=== PATIENT | female | born 1985 | race American Indian/Alaskan Native ===

== ENCOUNTER 2016-10-18 10:25 | Emergency (ER) | payer MEDICAID, OTHER ==
[2016-10-18 10:44] VITALS: BP 151/92
[2016-10-18] MEDS ORDERED: Ketorolac 60 MG/2 ML SDV IM ONE (10:55)
--- NOTE | 2016-10-18 11:37 | EDM.PDOC ---
ED HPI Trauma - General Chief Complaint: Upper Extremity Injury/Pain Stated Complaint: HURT LT ARM Time Seen by Provider: 10/18/16 10:44 Source: Reports: Patient History Limitations: Reports: No limitations - History of Present Illness INITIAL COMMENTS - FREE TEXT/NARRATIVE: History of present illness: [31-year-old female who fell on the ice yesterday onto her left elbow comes in complaining of left elbow pain and proximal left forearm pain. no other injuries. She comes into the ER ambulatory self splinting the elbow] Review of systems: As per history of present illness and below otherwise all systems reviewed and negative. Past medical history: As per history of present illness and as reviewed below otherwise noncontributory. Surgical history: As per history of present illness and as reviewed below otherwise noncontributory. Social history: No reported history of drug or alcohol abuse. Family history: As per history of present illness and as reviewed below otherwise noncontributory. Physical exam: HEENT: Atraumatic, normocephalic, pupils reactive, negative for conjunctival pallor or scleral icterus, mucous membranes moist, throat clear, neck supple, nontender, trachea midline. Lungs: Clear to auscultation Heart: S1S2, regular Extremities: She has no swelling of the left ear or deformity on palpation she has diffuse pain about the elbow and proximal forearm there does not seem to be any area of point tenderness Neuro: Awake, alert, oriented. Motor and sensory unremarkable throughout. Exam nonfocal. Diagnostics: [X-rays of the elbow and forearm do not show any fractures that I am appreciating] Therapeutics: [] Impression: [Contusion left elbow] Plan: [She is provided with morphine immediate release 15 mg 1 by mouth every 4 hours when necessary #10 no refills. She is also provided with a sling and is to follow up with primary care doctor if not improving] Definitive disposition and diagnosis as appropriate pending reevaluation and review of above. Allergies/ADRs: Allergies doxycycline Allergy (Verified 03/27/16 09:41) Itching ibuprofen Allergy (Verified 03/27/16 09:41) Hives Penicillins Allergy (Verified 03/27/16 09:41) Hives codeine phosphate [From Tylenol-Codeine #3] Adverse Reaction (Verified 03/27/16 09:41) Nausea and Vomiting erythromycin base Adverse Reaction (Verified 03/27/16 09:41) Dizziness Past Medical History HEENT History: Reports: Impaired vision, Other (see below) Other HEENT History: Dental abscess Cardiovascular History: Reports: Heart murmur Respiratory History: Reports: Asthma, Pneumothorax Gastrointestinal History: Reports: Cholelithiasis, GERD 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: Musculoskeletal History: Reports: Back pain, chronic Psychiatric History: Reports: Panic attack - Infectious Disease History Infectious Disease History: Reports: Chicken pox - Past Surgical History HEENT Surgical History: Reports: Tonsillectomy GI Surgical History: Reports: Cholecystectomy, Colonoscopy Female Surgical History: Reports: section Social & Family History - Family History Cardiac: Reports: [place] - Tobacco Use Smoking Status *Q: Current Every Day Smoker Years of Tobacco use: 10 Packs/Tins Daily: 1 Used Tobacco, but Quit: Yes Month Tobacco Last Used: January Second Hand Smoke Exposure: Yes - Alcohol Use Days Per Week of Alcohol Use: 0 - Recreational Drug Use Recreational Drug Use: No Review of Systems - Review of Systems Review Of Systems: ROS reveals no pertinent complaints other than HPI. Trauma Exam - Physical Exam Exam: See Below Course - Vital Signs Last Recorded V/S: Last Vital Signs Temp 36.1 C 10/18/16 10:49 Pulse 59 L 10/18/16 10:49 Resp 16 10/18/16 10:49 BP 151/92 H 10/18/16 10:49 Pulse Ox 96 10/18/16 10:49 - Orders/Labs/Meds Orders: Active Orders 24 hr Category Date Time Status Elbow Min 3V Lt [CR] Stat Exams 10/18/16 10:46 Ordered Forearm 2V Lt [CR] Stat Exams 10/18/16 10:46 Taken Meds: Medications Discontinued Medications Generic Name Dose Route Start Last Admin Trade Name Jesus Albertoq PRN Reason Stop Dose Admin Ketorolac Tromethamine 30 mg 10/18/16 10:55 10/18/16 11:03 Toradol IM 10/18/16 10:56 30 mg ONETIME ONE Administration Departure - Departure Time of Disposition: 11:35 Disposition: Home, Self-Care 01 Condition: good Clinical Impression: Contusion of left elbow, initial encounter Qualifiers: Encounter type: initial encounter Qualified Code(s): S50.02XA - Contusion of left elbow, initial encounter Forms: ED Department Discharge Additional Instructions: You can continue to use ibuprofen or Advil or Aleve for your pain you can use Tylenol in addition to that. You can ice your elbow and forearm and use the sling for comfort but if after a week or 2 he is having a lot of pain and discomfort you should follow up with your primary care doctor - My Orders Last 24 Hours: My Active Orders 10/18/16 10:46 Elbow Min 3V Lt [CR] Stat Forearm 2V Lt [CR] Stat - Assessment/Plan Last 24 Hours: My Active Orders 10/18/16 10:46 Elbow Min 3V Lt [CR] Stat Forearm 2V Lt [CR] Stat
--- NOTE | 2016-10-20 08:57 | CR ---
Forearm 2V Lt, Elbow Min 3V Lt INDICATION: fall, pain FINDINGS: No acute fracture. Mild ulna minus variant. Slight hypertrophic change left elbow.
--- NOTE | 2016-10-20 08:57 | CR ---
Forearm 2V Lt, Elbow Min 3V Lt INDICATION: fall, pain FINDINGS: No acute fracture. Mild ulna minus variant. Slight hypertrophic change left elbow.
== END 2016-10-18 11:52 | disposition home or self-care (01) ==
LOC: JP.ED 10:25
DX: S50.02XA Contusion of left elbow, initial encounter (principal); F17.210 Nicotine dependence, cigarettes, uncomplicated; Z90.49 Acquired absence of other specified parts of digestive tract; Z98.890 Other specified postprocedural states; Z88.0 Allergy status to penicillin; Z88.1 Allergy status to other antibiotic agents; Z88.5 Allergy status to narcotic agent; W00.0XXA Fall on same level due to ice and snow, initial encounter
CPT/HCPCS: 73080; 73090; 96372; 99284; J1885; 99283

== ENCOUNTER 2017-03-08 19:48 | Emergency (ER) | payer MEDICAID, OTHER ==
[2017-03-08] MEDS ORDERED: Albuterol/Ipratropium 3.0-0.5 MG/3 ML Neb Soln NEB ONE (20:39)
--- NOTE | 2017-03-08 20:39 | EDM.PDOC ---
ED HPI GENERAL MEDICAL PROBLEM - General Chief Complaint: Respiratory Problem Stated Complaint: TROUBLE BREATHING Time Seen by Provider: 03/08/17 20:08 Source of Information: Reports: Patient History Limitations: Reports: No Limitations - History of Present Illness INITIAL COMMENTS - FREE TEXT/NARRATIVE: 32 yo female presents with 4 day hx of cough and nasal congestion. headache and SOB. She is a smoker and asthmatic. cough is productive. headache when coughing. Has felt feverish but has not measured temp. decrease in activity and appetite. Asthma controlled prior to illness - Related Data Allergies Allergy/AdvReac Type Severity Reaction Status Date / Time doxycycline Allergy Itching Verified 03/08/17 20:14 ibuprofen Allergy Hives Verified 03/08/17 20:14 Penicillins Allergy Hives Verified 03/08/17 20:14 codeine phosphate AdvReac Nausea and Verified 03/08/17 20:14 [From Tylenol-Codeine #3] Vomiting erythromycin base AdvReac Dizziness Verified 03/08/17 20:14 Home Meds: Home Meds NK [No Known Home Meds] 03/08/17 [History] Past Medical History HEENT History: Reports: Impaired Vision, Other (See Below) Other HEENT History: Dental abscess Cardiovascular History: Reports: Heart Murmur Respiratory History: Reports: Asthma, Pneumothorax Gastrointestinal History: Reports: Cholelithiasis, GERD 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: Musculoskeletal History: Reports: Back Pain, Chronic Psychiatric History: Reports: Panic Attack - Infectious Disease History Infectious Disease History: Reports: Chicken Pox - Past Surgical History GI Surgical History: Reports: Cholecystectomy, Colonoscopy Female Surgical History: Reports: Section Social & Family History - Family History Cardiac: Reports: [place] - Tobacco Use Smoking Status *Q: Current Every Day Smoker Years of Tobacco use: 15 Packs/Tins Daily: 1 Used Tobacco, but Quit: Yes Month Tobacco Last Used: January Second Hand Smoke Exposure: Yes - Alcohol Use Days Per Week of Alcohol Use: 0 - Recreational Drug Use Recreational Drug Use: No ED ROS GENERAL - Review of Systems Review Of Systems: See Below Constitutional: Reports: Fever, Chills, Fatigue HEENT: Reports: Sinus Problem, Throat Pain Respiratory: Reports: Shortness of Breath, Cough, Sputum. Denies: Wheezing Cardiovascular: Denies: Chest Pain, Palpitations GI/Abdominal: Denies: Abdominal Pain Skin: Denies: Rash ED EXAM, GENERAL - Physical Exam Exam: See Below Exam Limited By: No Limitations General Appearance: Alert, WD/WN, No Apparent Distress Ears: Normal External Exam Ear Exam: Right Ear: TM normal, Left Ear: TM Red Nose: No Blood, Nasal Drainage Throat/Mouth: Inflammation Head: Atraumatic, Normocephalic Neck: Normal Inspection, Supple, Non-Tender, Full Range of Motion, Lymphadenopathy (R), Lymphadenopathy (L) Respiratory/Chest: No Accessory Muscle Use, Decreased Breath Sounds Cardiovascular: Regular Rate, Rhythm, No Murmur GI/Abdominal: Soft, Non-Tender Back Exam: Normal Inspection, Full Range of Motion. No: CVA Tenderness (R), CVA Tenderness (L) Neurological: Alert, Oriented Psychiatric: Normal Affect, Normal Mood Skin Exam: Warm, Dry, Intact, No Rash Course - Vital Signs Last Recorded V/S: Last Vital Signs Temp 37.1 C 03/08/17 20:19 Pulse 70 03/08/17 20:19 Resp 22 H 03/08/17 20:19 BP 147/79 H 03/08/17 20:19 Pulse Ox 95 03/08/17 20:19 - Orders/Labs/Meds Orders: Active Orders 24 hr Category Date Time Status RT Aerosol Therapy [RC] ASDIRECTED Care 03/08/17 20:39 Active Chest 2V [CR] Stat Exams 03/08/17 20:37 Taken Sodium Chloride 0.9% [Normal Saline] 1,000 ml Med 03/08/17 20:45 Active IV ASDIRECTED Medication Orders Sodium Chloride (Normal Saline) 1,000 mls @ 999 mls/hr IV ASDIRECTED PAOLO Last Admin: 03/08/17 20:48 Dose: 999 mls/hr Labs: Laboratory Tests 03/08/17 03/08/17 Range/Units 21:06 21:06 WBC 9.7 (4.5-11.0) K/uL RBC 4.70 (3.30-5.50) M/uL Hgb 15.0 (12.0-15.0) g/dL Hct 41.4 (36.0-48.0) % MCV 88 (80-98) fL MCH 32 H (27-31) pg MCHC 36 (32-36) % Plt Count 282 (150-400) K/uL Neut % (Auto) 69 H (36-66) % Lymph % (Auto) 22 L (24-44) % [place] % (Auto) 7 H (2-6) % Eos % (Auto) 1 L (2-4) % Baso % (Auto) 1 (0-1) % Sodium 143 (140-148) mmol/L Potassium 3.4 L (3.6-5.2) mmol/L Chloride 106 (100-108) mmol/L Carbon Dioxide 30 (21-32) mmol/L Anion Gap 10.4 (5.0-14.0) mmol/L BUN 10 (7-18) mg/dL Creatinine 1.1 H (0.6-1.0) mg/dL Est Cr Clr Drug Dosing 71.40 mL/min Estimated GFR (MDRD) 58 L (>60) Glucose 106 (74-106) mg/dL Calcium 9.3 (8.5-10.1) mg/dL Meds: Medications Generic Name Dose Route Start Last Admin Trade Name Freq PRN Reason Stop Dose Admin Sodium Chloride 1,000 mls @ 999 mls/hr 03/08/17 20:45 03/08/17 20:48 Normal Saline IV 999 mls/hr ASDIRECTED PAOLO Administration Discontinued Medications Generic Name Dose Route Start Last Admin Trade Name Freq PRN Reason Stop Dose Admin Albuterol/Ipratropium 3 ml 03/08/17 20:39 03/08/17 20:47 Duoneb 3.0-0.5 Mg/3 Ml NEB 03/08/17 20:40 3 ml ONETIME ONE Administration - Re-Assessments/Exams Free Text/Narrative Re-Assessment/Exam: 03/08/17 21:42 breathing improved post neb treatment. will treat with Azithromycin 500 mg daily for 5 days and albuterol nebs as needed Departure - Departure Time of Disposition: 21:44 Disposition: Home, Self-Care 01 Condition: Good Clinical Impression: Sinusitis Qualifiers: Sinusitis location: unspecified location Chronicity: acute Recurrence: non- recurrent Qualified Code(s): J01.90 - Acute sinusitis, unspecified Acute bronchiolitis Qualifiers: Bronchiolitis organism: unspecified organism Qualified Code(s): J21.9 - Acute bronchiolitis, unspecified Asthma Qualifiers: Asthma severity: mild intermittent Asthma complication type: with acute exacerbation Qualified Code(s): J45.21 - Mild intermittent asthma with (acute) exacerbation - Discharge Information Forms: ED Department Discharge Additional Instructions: azithromycin 500 mg daily for 5 days albuterol as needed for cough increase fluid intake with goal of 1.5-2 liters per day with an addition of sports drink for electrolyte imbalance - My Orders Last 24 Hours: My Active Orders 03/08/17 20:37 Chest 2V [CR] Stat 03/08/17 20:39 RT Aerosol Therapy [RC] ASDIRECTED 03/08/17 20:45 Sodium Chloride 0.9% [Normal Saline] 1,000 ml IV ASDIRECTED - Assessment/Plan Last 24 Hours: My Active Orders 03/08/17 20:37 Chest 2V [CR] Stat 03/08/17 20:39 RT Aerosol Therapy [RC] ASDIRECTED 03/08/17 20:45 Sodium Chloride 0.9% [Normal Saline] 1,000 ml IV ASDIRECTED
[2017-03-08] MEDS ORDERED: Sodium Chloride 0.9% 1,000 ML IV SCH (20:45)
[2017-03-08 21:41] VITALS: BP 121/70
--- NOTE | 2017-03-09 10:13 | CR ---
Chest 2V HISTORY: cough COMPARISON: 01/11/2016 FINDINGS: Lungs appear clear and normally aerated. Cardiomediastinal silhouette is within normal limits. No va scular redistribution or pleural fluid can be seen. Bony structures and soft tissues are unremarkabl e. IMPRESSION: No acute chest abnormality identified.
== END 2017-03-08 22:13 | disposition home or self-care (01) ==
LOC: JP.ED 19:48
DX: J01.90 Acute sinusitis, unspecified (principal); J21.9 Acute bronchiolitis, unspecified; J45.21 Mild intermittent asthma with (acute) exacerbation; K21.9 Gastro-esophageal reflux disease without esophagitis; F17.210 Nicotine dependence, cigarettes, uncomplicated; Z90.49 Acquired absence of other specified parts of digestive tract; Z98.890 Other specified postprocedural states; Z88.0 Allergy status to penicillin; Z88.1 Allergy status to other antibiotic agents; Z88.5 Allergy status to narcotic agent; Z88.6 Allergy status to analgesic agent
CPT/HCPCS: 36415; 71020; 80048; 85025; 96360; 99284; J7040; J7620

== ENCOUNTER 2018-01-10 12:09 | Emergency (ER) | payer MEDICAID ==
[2018-01-10 12:28] VITALS: BP 118/73
--- NOTE | 2018-01-10 13:31 | EDM.PDOC ---
ED HPI GENERAL MEDICAL PROBLEM - General Chief Complaint: Bite:Animal, Insect Stated Complaint: BIT BY SOMETHING ON UPPER RIGHT LEG Time Seen by Provider: 01/10/18 13:27 Source of Information: Reports: Patient, Family, RN Notes Reviewed History Limitations: Reports: No Limitations - History of Present Illness INITIAL COMMENTS - FREE TEXT/NARRATIVE: 33-year-old female presents with complaint of rash on her right leg she is unsure of how long it's been there is painful for one of her hobbies is leaching Right Upper Leg Pain Score (Numeric/FACES): 8 - Related Data Allergies Allergy/AdvReac Type Severity Reaction Status Date / Time doxycycline Allergy Itching Verified 01/10/18 12:27 ibuprofen Allergy Hives Verified 01/10/18 12:27 Penicillins Allergy Hives Verified 01/10/18 12:27 Sulfa (Sulfonamide Allergy Hives Verified 01/10/18 12:27 Antibiotics) codeine phosphate AdvReac Nausea and Verified 01/10/18 12:27 [From Tylenol-Codeine #3] Vomiting erythromycin base AdvReac Dizziness Verified 01/10/18 12:27 Home Meds: Home Meds NK [No Known Home Meds] 03/08/17 [History] Past Medical History HEENT History: Reports: Impaired Vision, Other (See Below) Other HEENT History: Dental abscess Cardiovascular History: Reports: Heart Murmur Respiratory History: Reports: Asthma, Pneumothorax Gastrointestinal History: Reports: Cholelithiasis, GERD 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: Musculoskeletal History: Reports: Back Pain, Chronic Psychiatric History: Reports: Panic Attack - Infectious Disease History Infectious Disease History: Reports: Chicken Pox - Past Surgical History GI Surgical History: Reports: Cholecystectomy, Colonoscopy Female Surgical History: Reports: Section Social & Family History - Family History Cardiac: Reports: [place] - Tobacco Use Smoking Status *Q: Current Every Day Smoker Years of Tobacco use: 10 Packs/Tins Daily: 0.5 - Caffeine Use Caffeine Use: Reports: Soda - Recreational Drug Use Recreational Drug Use: No ED ROS GENERAL - Review of Systems Review Of Systems: See Below Constitutional: Reports: No Symptoms Respiratory: Reports: No Symptoms Cardiovascular: Reports: No Symptoms Skin: Reports: Rash ED EXAM, ANIMAL BITE - Physical Exam Exam: See Below Text/Narrative:: Examination of the integument area on the right thigh there is a raised area with a small ulceration in the center about the size of a $0.25 piece there is central clearing around that area about 1 cm in thickness followed by another red area 2 cm in thickness around that consistent with erythema migrans Exam Limited By: No Limitations General Appearance: Alert, WD/WN, No Apparent Distress Course - Vital Signs Last Recorded V/S: Last Vital Signs Temp 97.5 F 01/10/18 12:23 Pulse 55 L 01/10/18 12:23 Resp 16 01/10/18 12:23 BP 118/73 01/10/18 12:23 Pulse Ox 98 01/10/18 12:23 - Orders/Labs/Meds Meds: Medications Discontinued Medications Generic Name Dose Route Start Last Admin Trade Name Freq PRN Reason Stop Dose Admin Cefuroxime Axetil 500 mg 01/10/18 13:25 Ceftin PO 01/10/18 13:26 ONETIME ONE Departure - Departure Time of Disposition: 13:30 Disposition: Home, Self-Care 01 Condition: Good Clinical Impression: Erythema migrans (Lyme disease) - Discharge Information Referrals: PCP,None [Primary Care Provider] - Additional Instructions: Take full course of antibiotics, Please followup with your primary care provider in 3-5 days if not better, please call return to the emergency department with worsening of symptoms. - Assessment/Plan Plan: Assessment Acuity = acute Site and laterality = early Lyme disease Etiology = secondary to deer tick bite Manifestations = none Location of injury = Home Lab values = none Plan Because of her allergies elected treat with Ceftin 500 mg by mouth twice a day 20 days initial dose was started in the emergency department follow-up primary care in 5-7 days if no improvement This note was dictated using [employer] voice recognition software please call with any questions on syntax or grammar.
== END 2018-01-10 13:41 | disposition home or self-care (01) ==
LOC: JP.ED 12:09
DX: A69.20 Lyme disease, unspecified (principal); S70.361A Insect bite (nonvenomous), right thigh, initial encounter; F17.210 Nicotine dependence, cigarettes, uncomplicated; Z88.1 Allergy status to other antibiotic agents; Z88.0 Allergy status to penicillin; Z88.2 Allergy status to sulfonamides; Z88.8 Allergy status to other drugs, medicaments and biological substances; W57.XXXA Bitten or stung by nonvenomous insect and other nonvenomous arthropods, initial encounter
CPT/HCPCS: 99282; 99283; A9270

== ENCOUNTER 2018-02-14 19:58 | Emergency (ER) | payer MEDICAID ==
[2018-02-14 20:17] VITALS: BP 144/85
--- NOTE | 2018-02-14 20:52 | EDM.PDOC ---
ED HPI GENERAL MEDICAL PROBLEM - General Chief Complaint: Bite:Animal, Insect Stated Complaint: REDNESS R LEG Time Seen by Provider: 02/14/18 20:20 Source of Information: Reports: Patient History Limitations: Reports: No Limitations - History of Present Illness INITIAL COMMENTS - FREE TEXT/NARRATIVE: 33 yo female initially seen in ER 1 month ago dx tick bite and started on 20 days of keflex she was seen in [facility] ER 11 days ago tx with Bactrim DS. Continues to have itching and warm. mild pain. generally feels well right upper thigh Pain Score (Numeric/FACES): 8 - Related Data Allergies Allergy/AdvReac Type Severity Reaction Status Date / Time doxycycline Allergy Itching Verified 02/14/18 20:18 ibuprofen Allergy Hives Verified 02/14/18 20:18 Penicillins Allergy Hives Verified 02/14/18 20:18 Sulfa (Sulfonamide Allergy Hives Verified 02/14/18 20:18 Antibiotics) codeine phosphate AdvReac Nausea and Verified 02/14/18 20:18 [From Tylenol-Codeine #3] Vomiting erythromycin base AdvReac Dizziness Verified 02/14/18 20:18 Home Meds: Home Meds Sulfamethoxazole/Trimethoprim [Septra DS] 1 tab PO DAILY 02/14/18 [History] Past Medical History HEENT History: Reports: Impaired Vision, Other (See Below) Other HEENT History: Dental abscess Cardiovascular History: Reports: Heart Murmur Respiratory History: Reports: Asthma, Pneumothorax Gastrointestinal History: Reports: Cholelithiasis, GERD 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: Musculoskeletal History: Reports: Back Pain, Chronic Psychiatric History: Reports: Panic Attack - Infectious Disease History Infectious Disease History: Reports: Chicken Pox - Past Surgical History GI Surgical History: Reports: Cholecystectomy, Colonoscopy Female Surgical History: Reports: Section Social & Family History - Family History Cardiac: Reports: [place] - Tobacco Use Smoking Status *Q: Current Every Day Smoker Years of Tobacco use: 15 Packs/Tins Daily: 0.5 - Caffeine Use Caffeine Use: Reports: Soda ED ROS GENERAL - Review of Systems Review Of Systems: See Below Constitutional: Denies: Fever, Chills, Fatigue Respiratory: Denies: Shortness of Breath, Wheezing Cardiovascular: Denies: Chest Pain Skin: Reports: Rash, Erythema ED EXAM, ANIMAL BITE - Physical Exam Exam: See Below Exam Limited By: No Limitations General Appearance: Alert, WD/WN, No Apparent Distress Respiratory/Chest: No Respiratory Distress, Lungs Clear, Normal Breath Sounds. No: Crackles, Rhonchi, Wheezing Cardiovascular: Regular Rate, Rhythm, No Edema, No Murmur Skin Exam: Rash (15 cm soft mild warmth to touch rash right posterior thigh) Course - Vital Signs Last Recorded V/S: Last Vital Signs Temp 36.8 C 02/14/18 20:23 Pulse 79 02/14/18 20:23 Resp 16 02/14/18 20:23 BP 144/85 H 02/14/18 20:23 Pulse Ox 98 02/14/18 20:23 Departure - Departure Time of Disposition: 20:53 Disposition: Home, Self-Care 01 Condition: Good Clinical Impression: Erythema migrans (Lyme disease) - Discharge Information Instructions: Tick Bite Information, Adult, [id number] Referrals: Satinder Shah MD [Primary Care Provider] - Forms: ED Department Discharge Additional Instructions: prednisone taper dose steroid cream twice daily
== END 2018-02-14 21:22 | disposition home or self-care (01) ==
LOC: JP.ED 19:58
DX: A69.20 Lyme disease, unspecified (principal); F17.210 Nicotine dependence, cigarettes, uncomplicated; Z88.1 Allergy status to other antibiotic agents; Z88.0 Allergy status to penicillin; Z88.2 Allergy status to sulfonamides; Z88.5 Allergy status to narcotic agent; Z88.6 Allergy status to analgesic agent
CPT/HCPCS: 99283

== ENCOUNTER 2018-08-24 11:22 | Emergency (ER) | payer MEDICAID ==
[2018-08-24 11:58] VITALS: BP 128/71
--- NOTE | 2018-08-24 12:06 | EDM.PDOC ---
ED HPI GENERAL MEDICAL PROBLEM - General Chief Complaint: Respiratory Problem Stated Complaint: CHEST CONGESTION/PAIN Time Seen by Provider: 08/24/18 11:50 Source of Information: Reports: Patient, Family History Limitations: Reports: No Limitations - History of Present Illness INITIAL COMMENTS - FREE TEXT/NARRATIVE: 33-year-old female with asthma, has had a cough for the past 3 or 4 days and over the past 12 hours it has become productive of thick and yellow sputum. Low- grade fevers, no abdominal pain, nausea or vomiting. She does not have any asthma medication or inhalers at this time. Denies a sore throat or ear pain. Onset: Gradual Duration: Day(s): (3-4 days) Associated Symptoms: Reports: Cough, Malaise, Shortness of Breath. Denies: Nausea/Vomiting - Related Data Allergies Allergy/AdvReac Type Severity Reaction Status Date / Time doxycycline Allergy Itching Verified 08/24/18 11:34 ibuprofen Allergy Hives Verified 08/24/18 11:34 Penicillins Allergy Hives Verified 08/24/18 11:34 Sulfa (Sulfonamide Allergy Hives Verified 08/24/18 11:34 Antibiotics) codeine phosphate AdvReac Nausea and Verified 08/24/18 11:34 [From Tylenol-Codeine #3] Vomiting erythromycin base AdvReac Dizziness Verified 08/24/18 11:34 Home Meds: Home Meds NK [No Known Home Meds] 02/28/18 [History] Past Medical History HEENT History: Reports: Impaired Vision, Other (See Below) Other HEENT History: Dental abscess Cardiovascular History: Reports: Heart Murmur Respiratory History: Reports: Asthma, Pneumothorax Gastrointestinal History: Reports: Cholelithiasis, GERD 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: Musculoskeletal History: Reports: Back Pain, Chronic Neurological History: Reports: Migraines Psychiatric History: Reports: Panic Attack Endocrine/Metabolic History: Reports: Obesity/BMI 30+ - Infectious Disease History Infectious Disease History: Reports: Chicken Pox - Past Surgical History Head Surgeries/Procedures: Reports: None HEENT Surgical History: Reports: Adenoidectomy, Tonsillectomy Cardiovascular Surgical History: Reports: None Respiratory Surgical History: Reports: None GI Surgical History: Reports: Cholecystectomy, Colonoscopy, EGD Female Surgical History: Reports: Section Endocrine Surgical History: Reports: None Neurological Surgical History: Reports: None Musculoskeletal Surgical History: Reports: None Dermatological Surgical History: Reports: None Social & Family History - Family History Cardiac: Reports: [place] - Tobacco Use Smoking Status *Q: Current Every Day Smoker Years of Tobacco use: 15 Packs/Tins Daily: 0.5 Used Tobacco, but Quit: No - Caffeine Use Caffeine Use: Reports: Soda - Recreational Drug Use Recreational Drug Use: No ED ROS GENERAL - Review of Systems Review Of Systems: See Below Constitutional: Reports: Chills, Malaise HEENT: Denies: Ear Pain, Throat Pain Respiratory: Reports: Shortness of Breath, Cough, Sputum Cardiovascular: Denies: Chest Pain GI/Abdominal: Denies: Abdominal Pain, Nausea, Vomiting Skin: Reports: No Symptoms Neurological: Denies: Headache Psychiatric: Reports: No Symptoms ED EXAM, GENERAL - Physical Exam Exam: See Below Exam Limited By: No Limitations General Appearance: Alert, No Apparent Distress Ear Exam: Bilateral Ear: Other (Tympanic scarring is present bilaterally from previous tubes.) Throat/Mouth: Normal Inspection Head: Atraumatic Respiratory/Chest: No Respiratory Distress, Wheezing (Diffuse expiratory wheezing is present along with a few perihilar rhonchi) Course - Vital Signs Last Recorded V/S: Last Vital Signs Temp 96.4 F 08/24/18 11:40 Pulse 57 L 08/24/18 11:40 Resp 16 08/24/18 11:40 BP 128/71 08/24/18 11:40 Pulse Ox 97 08/24/18 11:40 - Re-Assessments/Exams Free Text/Narrative Re-Assessment/Exam: 08/24/18 12:05 Patient will be provided with an albuterol inhaler to take 2 puffs every 3-4 hours for wheezing, and supplied a horse of 5 days of Zithromax. It was explained to the patient that this is likely viral and the Zithromax may be more preventative. If she is worsening despite treatment she should return for recheck. Departure - Departure Time of Disposition: 12:28 Disposition: Home, Self-Care 01 Condition: Good Clinical Impression: Bronchitis Asthma exacerbation Qualifiers: Asthma severity: mild Asthma persistence: intermittent Qualified Code(s): J45.21 - Mild intermittent asthma with (acute) exacerbation - Discharge Information Instructions: Acute Bronchitis, Adult, [id number] Referrals: PCP,None [Primary Care Provider] - Forms: ED Department Discharge Care Plan Goals: Use inhaler 1-2 puffs every 3 hours for wheezing, and take antibiotic as prescribed. Return in 2-3 days if not improving satisfactorily, or consider returning sooner if worsening such as increased shortness of breath or fever.
== END 2018-08-24 12:28 | disposition home or self-care (01) ==
LOC: JP.ED 11:22
DX: J45.21 Mild intermittent asthma with (acute) exacerbation (principal); E66.9 Obesity, unspecified; F17.210 Nicotine dependence, cigarettes, uncomplicated; Z88.8 Allergy status to other drugs, medicaments and biological substances; Z88.5 Allergy status to narcotic agent; Z88.2 Allergy status to sulfonamides; Z88.0 Allergy status to penicillin
CPT/HCPCS: 99283

== ENCOUNTER 2019-02-06 15:42 | Emergency (ER) | payer MEDICAID ==
[2019-02-06 16:31] VITALS: BP 133/81; PULSE 65
[2019-02-06] MEDS ORDERED: Alum Hydrox/Mag Hydrox/Simeth 15 ML, Lidocaine 2% 15 ML PO ONE ×2 (16:47)
--- NOTE | 2019-02-06 16:53 | EDM.PDOC ---
ED HPI GENERAL MEDICAL PROBLEM - General Chief Complaint: Gastrointestinal Problem Stated Complaint: SHARP PAIN IN MED SECTION Time Seen by Provider: 02/06/19 16:35 Source of Information: Reports: Patient History Limitations: Reports: No Limitations - History of Present Illness INITIAL COMMENTS - FREE TEXT/NARRATIVE: states she used to be on PPI; isn't anymore; stomach discomfort has been going on for about 4 months has gall bladder out; no fever, no nausea or vomiting; no diarrhea. Is drinking per usual; per Significant other, she drinks a lot of mountain dew. Onset: Today Location: Reports: Abdomen Quality: Reports: Ache Severity: Moderate Improves with: Reports: None Worsens with: Reports: None Upper Epigastric Pain Score (Numeric/FACES): 8 - Related Data Allergies Allergy/AdvReac Type Severity Reaction Status Date / Time doxycycline Allergy Itching Verified 02/06/19 16:34 ibuprofen Allergy Hives Verified 02/06/19 16:34 Penicillins Allergy Hives Verified 02/06/19 16:34 Sulfa (Sulfonamide Allergy Hives Verified 02/06/19 16:34 Antibiotics) codeine phosphate AdvReac Nausea and Verified 02/06/19 16:34 [From Tylenol-Codeine #3] Vomiting erythromycin base AdvReac Dizziness Verified 02/06/19 16:34 Home Meds: Home Meds NK [No Known Home Meds] 02/28/18 [History] Past Medical History HEENT History: Reports: Impaired Vision, Other (See Below) Other HEENT History: Dental abscess Cardiovascular History: Reports: Heart Murmur Respiratory History: Reports: Asthma, Pneumothorax Gastrointestinal History: Reports: Cholelithiasis, GERD 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: Musculoskeletal History: Reports: Back Pain, Chronic Neurological History: Reports: Migraines Psychiatric History: Reports: Panic Attack Endocrine/Metabolic History: Reports: Obesity/BMI 30+ - Infectious Disease History Infectious Disease History: Reports: Chicken Pox - Past Surgical History HEENT Surgical History: Reports: Adenoidectomy, Tonsillectomy GI Surgical History: Reports: Cholecystectomy, Colonoscopy, EGD Female Surgical History: Reports: Section Social & Family History - Family History Cardiac: Reports: [place] - Tobacco Use Smoking Status *Q: Light Tobacco Smoker Years of Tobacco use: 10 Packs/Tins Daily: 0.5 - Caffeine Use Caffeine Use: Reports: Soda - Recreational Drug Use Recreational Drug Use: No ED ROS GENERAL - Review of Systems Review Of Systems: See Below Constitutional: Reports: No Symptoms Respiratory: Reports: No Symptoms Cardiovascular: Reports: No Symptoms GI/Abdominal: Reports: Abdominal Pain : Reports: No Symptoms Musculoskeletal: Reports: No Symptoms Skin: Reports: No Symptoms Neurological: Reports: No Symptoms ED EXAM, GENERAL - Physical Exam Exam: See Below Exam Limited By: No Limitations General Appearance: Alert, WD/WN Head: Atraumatic, Normocephalic Neck: Normal Inspection, Supple, Full Range of Motion Respiratory/Chest: No Respiratory Distress, Lungs Clear Cardiovascular: Regular Rate, Rhythm GI/Abdominal: Normal Bowel Sounds, Soft, Non-Tender Back Exam: Full Range of Motion Extremities: Normal Inspection, Normal Range of Motion, Non-Tender Neurological: Alert, Oriented, CN II-XII Intact Psychiatric: Normal Affect, Normal Mood Skin Exam: Warm, Dry, Intact, Normal Color, No Rash Course - Vital Signs Last Recorded V/S: Last Vital Signs Temp 95.6 F 02/06/19 16:32 Pulse 65 02/06/19 16:32 Resp 16 02/06/19 16:32 BP 133/81 02/06/19 16:32 Pulse Ox 97 02/06/19 16:32 - Orders/Labs/Meds Orders: Active Orders 24 hr Category Date Time Status HELICOBACTER PYLORI, IGM AB Routine Lab 02/06/19 18:11 Received Meds: Medications Discontinued Medications Generic Name Dose Route Start Last Admin Trade Name Jesus Albertoq PRN Reason Stop Dose Admin Al Hydroxide/Mg Hydroxide 15 0 ml 02/06/19 16:47 02/06/19 16:52 ml/ Lidocaine HCl 15 ml PO 02/06/19 16:48 15 ml ONETIME ONE Administration Famotidine 20 mg 02/06/19 17:45 02/06/19 18:07 Pepcid PO 02/06/19 17:46 20 mg ONETIME ONE Administration - Re-Assessments/Exams Free Text/Narrative Re-Assessment/Exam: 02/06/19 16:51 GI cocktail ordered 02/06/19 18:14 States GI cocktail was helpful Will get Hpylori test, it is a send out Start omeprazole daily Departure - Departure Time of Disposition: 17:50 Disposition: Home, Self-Care 01 Condition: Good Clinical Impression: Stomach pain - Discharge Information *PRESCRIPTION DRUG MONITORING PROGRAM REVIEWED*: Not Applicable *COPY OF PRESCRIPTION DRUG MONITORING REPORT IN PATIENT MANDO: Not Applicable Instructions: Pain Without a Known Cause Referrals: PCP,None [Primary Care Provider] - Forms: ED Department Discharge Additional Instructions: start prilosec again, daily; and if no improvement after 7 days, go to twice per day Follow up with your doctor if not improving; If symptoms are worsening, return for further evaluation. - Problem List & Annotations (1) Stomach pain SNOMED Code(s): 763232194 Code(s): R10.9 - UNSPECIFIED ABDOMINAL PAIN Status: Acute Priority: Low - Problem List Review Problem List Initiated/Reviewed/Updated: Yes - My Orders Last 24 Hours: My Active Orders 02/06/19 18:11 HELICOBACTER PYLORI, IGM AB Routine - Assessment/Plan Last 24 Hours: My Active Orders 02/06/19 18:11 HELICOBACTER PYLORI, IGM AB Routine
[2019-02-06] MEDS ORDERED: Famotidine 20 MG Tab PO ONE (17:45)
== END 2019-02-06 18:08 | disposition home or self-care (01) ==
LOC: JP.ED 15:42
DX: R10.13 Epigastric pain (principal); Z88.0 Allergy status to penicillin; Z88.6 Allergy status to analgesic agent; Z88.2 Allergy status to sulfonamides; Z88.1 Allergy status to other antibiotic agents; Z88.5 Allergy status to narcotic agent; E66.9 Obesity, unspecified; Z90.49 Acquired absence of other specified parts of digestive tract; Z98.890 Other specified postprocedural states; F17.210 Nicotine dependence, cigarettes, uncomplicated
CPT/HCPCS: 86677; 99284; A9270; 99283

== ENCOUNTER 2019-03-27 13:16 | Emergency (ER) | payer MEDICAID ==
[2019-03-27 13:38] VITALS: BP 154/92
--- NOTE | 2019-03-27 14:14 | EDM.PDOC ---
ED HPI GENERAL MEDICAL PROBLEM - General Chief Complaint: Abdominal Pain Stated Complaint: STOMACH PAIN Time Seen by Provider: 03/27/19 13:44 Source of Information: Reports: Patient History Limitations: Reports: No Limitations - History of Present Illness INITIAL COMMENTS - FREE TEXT/NARRATIVE: 34 yo female presents to the ER with 7 day hx of ABD pain generalized upper ABD radiating from mid back. nausea without emesis. no appetite. afebrile Lower Abdomen Pain Score (Numeric/FACES): 9 - Related Data Allergies Allergy/AdvReac Type Severity Reaction Status Date / Time doxycycline Allergy Itching Verified 03/27/19 13:43 ibuprofen Allergy Hives Verified 03/27/19 13:43 Penicillins Allergy Hives Verified 03/27/19 13:43 Sulfa (Sulfonamide Allergy Hives Verified 03/27/19 13:43 Antibiotics) codeine phosphate AdvReac Nausea and Verified 03/27/19 13:43 [From Tylenol-Codeine #3] Vomiting erythromycin base AdvReac Dizziness Verified 03/27/19 13:43 Home Meds: Home Meds NK [No Known Home Meds] 02/28/18 [History] Past Medical History HEENT History: Reports: Impaired Vision, Other (See Below) Other HEENT History: Dental abscess Cardiovascular History: Reports: Heart Murmur Respiratory History: Reports: Asthma, Pneumothorax Gastrointestinal History: Reports: Cholelithiasis, GERD 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 History: Reports: None 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: Musculoskeletal History: Reports: Back Pain, Chronic Neurological History: Reports: Migraines Psychiatric History: Reports: Anxiety, Panic Attack Endocrine/Metabolic History: Reports: Obesity/BMI 30+ - Infectious Disease History Infectious Disease History: Reports: Chicken Pox - Past Surgical History Head Surgeries/Procedures: Reports: None HEENT Surgical History: Reports: Adenoidectomy, Tonsillectomy Cardiovascular Surgical History: Reports: None Respiratory Surgical History: Reports: None GI Surgical History: Reports: Cholecystectomy, Colonoscopy, EGD Female Surgical History: Reports: Section Endocrine Surgical History: Reports: None Neurological Surgical History: Reports: None Musculoskeletal Surgical History: Reports: None Dermatological Surgical History: Reports: None Social & Family History - Family History Cardiac: Reports: [place] - Tobacco Use Smoking Status *Q: Current Every Day Smoker Years of Tobacco use: 10 Packs/Tins Daily: 0.5 Used Tobacco, but Quit: No Second Hand Smoke Exposure: Yes - Caffeine Use Caffeine Use: Reports: Soda - Recreational Drug Use Recreational Drug Use: No ED ROS GENERAL - Review of Systems Review Of Systems: See Below Constitutional: Reports: Malaise. Denies: Fever, Chills, Fatigue Respiratory: Denies: Shortness of Breath, Wheezing Cardiovascular: Denies: Chest Pain GI/Abdominal: Reports: Abdominal Pain : Denies: Dysuria Skin: Denies: Rash ED EXAM, GI/ABD - Physical Exam Exam: See Below Exam Limited By: No Limitations General Appearance: Alert, WD/WN, No Apparent Distress Respiratory/Chest: No Respiratory Distress, Lungs Clear, Normal Breath Sounds, No Accessory Muscle Use, Chest Non-Tender. No: Crackles, Rhonchi, Wheezing Cardiovascular: Regular Rate, Rhythm, No Murmur GI/Abdominal Exam: Normal Bowel Sounds, Soft, No Organomegaly, No Distention, Tender (generalized upper) Neurological: Alert, Oriented Psychiatric: Normal Affect, Normal Mood Skin Exam: Warm, Dry, Intact Course - Vital Signs Last Recorded V/S: Last Vital Signs Temp 36.3 C 03/27/19 13:44 Pulse 56 L 03/27/19 13:44 Resp 18 03/27/19 13:44 BP 154/92 H 03/27/19 13:44 Pulse Ox 99 03/27/19 13:44 - Orders/Labs/Meds Labs: Laboratory Tests 03/27/19 03/27/19 03/27/19 Range/Units 14:17 14:23 14:23 WBC 9.3 (4.5-11.0) K/uL RBC 4.80 (3.30-5.50) M/uL Hgb 15.1 H (12.0-15.0) g/dL Hct 44.7 (36.0-48.0) % MCV 93 (80-98) fL MCH 32 H (27-31) pg MCHC 34 (32-36) % Plt Count 307 (150-400) K/uL Neut % (Auto) 70 H (36-66) % Lymph % (Auto) 20 L (24-44) % [place] % (Auto) 6 (2-6) % Eos % (Auto) 4 (2-4) % Baso % (Auto) 1 (0-1) % Sodium 140 (140-148) mmol/L Potassium 4.0 (3.6-5.2) mmol/L Chloride 106 (100-108) mmol/L Carbon Dioxide 28 (21-32) mmol/L Anion Gap 6.4 (5.0-14.0) mmol/L BUN 6 L (7-18) mg/dL Creatinine 0.9 (0.6-1.0) mg/dL Est Cr Clr Drug Dosing 82.90 mL/min Estimated GFR (MDRD) > 60 (>60) Glucose 117 H (74-106) mg/dL Calcium 9.2 (8.5-10.1) mg/dL Urine Color Yellow (YELLOW) Urine Appearance Cloudy A (CLEAR) Urine pH 6.5 (5.0-8.0) Ur Specific [place] 1.025 (1.008-1.030) Urine Protein Negative (NEGATIVE) mg/dL Urine Glucose (UA) Normal (NEGATIVE) mg/dL Urine Ketones Negative (NEGATIVE) mg/dL Urine Occult Blood Trace-intact H (NEGATIVE) Urine Nitrite Negative (NEGATIVE) Urine Bilirubin Negative (NEGATIVE) Urine Urobilinogen Normal (0.2-1.0) EU/dL Ur Leukocyte Esterase Negative (NEGATIVE) Urine RBC 0-5 (0-5) Urine WBC Not seen (0-5) Ur Epithelial Cells Many Amorphous Sediment Moderate Urine Bacteria Many Urine Mucus Not seen - Re-Assessments/Exams Free Text/Narrative Re-Assessment/Exam: 03/27/19 15:09 WBC normal, hgb mildly elevated but she is a smoker. UA no WBC or RBC with many skin and bacteria I believe tis sample is contaminated and not indicative of UTI. Discussed findings with pt and offered her toradal for pain. Pt became upset that she was not getting her pain cared for and that she was just going to go home. ABD x-ray offer to evaluate for obstruction which she refuses and then left ER 03/27/19 15:52 Departure - Departure Time of Disposition: 15:55 Disposition: Against Medical Advice 07 Clinical Impression: Abdominal pain Qualifiers: Abdominal location: generalized Qualified Code(s): R10.84 - Generalized abdominal pain - Discharge Information *PRESCRIPTION DRUG MONITORING PROGRAM REVIEWED*: Not Applicable *COPY OF PRESCRIPTION DRUG MONITORING REPORT IN PATIENT MANDO: Not Applicable Referrals: PCP,None [Primary Care Provider] - Forms: ED Department Discharge
== END 2019-03-27 15:21 | disposition left against medical advice (07) ==
LOC: JP.ED 13:16
DX: R10.84 Generalized abdominal pain (principal); E66.9 Obesity, unspecified; F17.210 Nicotine dependence, cigarettes, uncomplicated; Z98.890 Other specified postprocedural states; Z90.49 Acquired absence of other specified parts of digestive tract; Z88.0 Allergy status to penicillin; Z88.2 Allergy status to sulfonamides; Z88.5 Allergy status to narcotic agent; Z88.1 Allergy status to other antibiotic agents
CPT/HCPCS: 36415; 80048; 81001; 85025; 99282; 99284

== ENCOUNTER 2019-08-11 15:03 | Emergency (ER) | payer MEDICAID ==
[2019-08-11 15:28] VITALS: BP 158/98; PULSE 57
[2019-08-11] MEDS ORDERED: Ondansetron 4 MG Tab.DIS PO ONE (15:45)
[2019-08-11] MEDS ORDERED: Lactated Ringers 1,000 ML IV ONE (16:20)
--- NOTE | 2019-08-11 16:25 | EDM.PDOC ---
ED HPI GENERAL MEDICAL PROBLEM - General Chief Complaint: Gastrointestinal Problem Stated Complaint: FLU Time Seen by Provider: 08/11/19 16:10 Source of Information: Reports: Patient, Old Records, RN History Limitations: Reports: No Limitations - History of Present Illness INITIAL COMMENTS - FREE TEXT/NARRATIVE: 34 yo female here with a complaint of several days of vomiting, diarrhea, and a occasionally productive cough. Had a fever a couple days ago that resolved. Is dizzy with standing and has decreased urination. Not SOB. 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: Other (see below) (none today) Upper Abdomen Pain Score (Numeric/FACES): 8 - Related Data Allergies Allergy/AdvReac Type Severity Reaction Status Date / Time doxycycline Allergy Itching Verified 08/11/19 15:28 ibuprofen Allergy Hives Verified 08/11/19 15:28 Penicillins Allergy Hives Verified 08/11/19 15:28 Sulfa (Sulfonamide Allergy Hives Verified 08/11/19 15:28 Antibiotics) codeine phosphate AdvReac Nausea and Verified 08/11/19 15:28 [From Tylenol-Codeine #3] Vomiting erythromycin base AdvReac Dizziness Verified 08/11/19 15:28 Home Meds: Home Meds NK [No Known Home Meds] 02/28/18 [History] Past Medical History HEENT History: Reports: Impaired Vision, Other (See Below) Other HEENT History: Dental abscess Cardiovascular History: Reports: Heart Murmur Respiratory History: Reports: Asthma, Pneumothorax Gastrointestinal History: Reports: Cholelithiasis, GERD 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: Musculoskeletal History: Reports: Back Pain, Chronic Neurological History: Reports: Migraines Psychiatric History: Reports: Anxiety, Panic Attack Endocrine/Metabolic History: Reports: Obesity/BMI 30+ - Infectious Disease History Infectious Disease History: Reports: Chicken Pox - Past Surgical History Head Surgeries/Procedures: Reports: None HEENT Surgical History: Reports: Adenoidectomy, Tonsillectomy Cardiovascular Surgical History: Reports: None Respiratory Surgical History: Reports: None GI Surgical History: Reports: Cholecystectomy, Colonoscopy, EGD Female Surgical History: Reports: Section, Salpingo-Oophorectomy Endocrine Surgical History: Reports: None Neurological Surgical History: Reports: None Musculoskeletal Surgical History: Reports: None Dermatological Surgical History: Reports: None Social & Family History - Family History Cardiac: Reports: [place] - Tobacco Use Smoking Status *Q: Current Every Day Smoker Years of Tobacco use: 20 Packs/Tins Daily: 0.5 Used Tobacco, but Quit: No - Caffeine Use Caffeine Use: Reports: Soda - Recreational Drug Use Recreational Drug Use: No ED ROS GENERAL - Review of Systems Review Of Systems: See Below Constitutional: Reports: Malaise HEENT: Reports: No Symptoms Respiratory: Reports: Cough, Sputum. Denies: Shortness of Breath, Wheezing, Hemoptysis Cardiovascular: Reports: Lightheadedness Endocrine: Reports: No Symptoms GI/Abdominal: Reports: Abdominal Pain (some cramps), Diarrhea, Nausea, Vomiting. Denies: Black Stool, Bloody Stool, Constipation, Distension, Flatus, Hematemesis, Hematochezia, Melena : Reports: Other (decreased) Musculoskeletal: Reports: No Symptoms Skin: Reports: No Symptoms Neurological: Reports: No Symptoms ED EXAM, GI/ABD - Physical Exam Exam: See Below Exam Limited By: No Limitations General Appearance: Alert, WD/WN, No Apparent Distress, Obese Eyes: Bilateral: Normal Appearance Ears: Normal External Exam, Normal Canal, Hearing Grossly Normal, Normal TMs Nose: Normal Inspection, No Blood Throat/Mouth: Normal Inspection, Normal Lips, Normal Oropharynx, Normal Voice, No Airway Compromise Head: Atraumatic, Normocephalic Neck: Normal Inspection Respiratory/Chest: No Respiratory Distress, Lungs Clear, Normal Breath Sounds, No Accessory Muscle Use Cardiovascular: Regular Rate, Rhythm, No Edema GI/Abdominal Exam: Normal Bowel Sounds, Soft, Non-Tender, No Distention Back Exam: Normal Inspection. No: CVA Tenderness (R), CVA Tenderness (L) Extremities: Normal Inspection, Normal Range of Motion, Non-Tender, No Pedal Edema Neurological: Alert, Oriented, CN II-XII Intact, Normal Cognition Psychiatric: Normal Affect, Normal Mood Skin Exam: Warm, Dry, Intact, Normal Color, No Rash Course - Vital Signs Last Recorded V/S: Last Vital Signs Temp 36.8 C 08/11/19 15:29 Pulse 57 L 08/11/19 15:29 Resp 14 08/11/19 15:29 BP 158/98 H 08/11/19 15:29 Pulse Ox 97 08/11/19 15:29 Orthostatic Blood Pressure [ 148/103 Standing] Orthostatic Blood Pressure [ 150/90 Sitting] Orthostatic Blood Pressure [ 138/86 Supine] - Orders/Labs/Meds Orders: Active Orders 24 hr Category Date Time Status Orthostatic Vital Signs [RC] ASDIRECTED Care 08/11/19 15:45 Active Atropine/Diphenoxylate [Lomotil 0.025-2.5 MG] Med 08/11/19 17:00 Once 1 tab PO ONETIME ONE Lactated Ringers [Ringers, Lactated] 1,000 ml Med 08/11/19 16:20 Active IV BOLUS Medication Orders Lactated Ringer's (Ringers, Lactated) 1,000 mls @ 1,000 mls/hr IV BOLUS ONE Stop: 08/11/19 17:19 Last Admin: 08/11/19 16:27 Dose: 1,000 mls/hr Labs: Laboratory Tests 08/11/19 08/11/19 Range/Units 15:51 15:51 WBC 10.2 (4.5-11.0) K/uL RBC 4.85 (3.30-5.50) M/uL Hgb 15.0 (12.0-15.0) g/dL Hct 44.5 (36.0-48.0) % MCV 92 (80-98) fL MCH 31 (27-31) pg MCHC 34 (32-36) % Plt Count 314 (150-400) K/uL Sodium 136 L (140-148) mmol/L Potassium 3.8 (3.6-5.2) mmol/L Chloride 103 (100-108) mmol/L Carbon Dioxide 25 (21-32) mmol/L Anion Gap 11.8 (5.0-14.0) mmol/L BUN 10 D (7-18) mg/dL Creatinine 0.8 (0.6-1.0) mg/dL Est Cr Clr Drug Dosing 96.36 mL/min Estimated GFR (MDRD) > 60 (>60) Glucose 100 (74-106) mg/dL Calcium 8.9 (8.5-10.1) mg/dL Meds: Medications Generic Name Dose Route Start Last Admin Trade Name Sudeep PRN Reason Stop Dose Admin Lactated Ringer's 1,000 mls @ 1,000 mls/hr 08/11/19 16:20 08/11/19 16:27 Ringers, Lactated IV 08/11/19 17:19 1,000 mls/hr BOLUS ONE Administration Discontinued Medications Generic Name Dose Route Start Last Admin Trade Name Sudeep PRN Reason Stop Dose Admin Ondansetron HCl 4 mg 08/11/19 15:45 08/11/19 15:53 Zofran Odt PO 08/11/19 15:46 4 mg ONETIME ONE Administration Departure - Departure Time of Disposition: 17:30 Disposition: Home, Self-Care 01 Condition: Fair Clinical Impression: Viral gastroenteritis - Discharge Information *PRESCRIPTION DRUG MONITORING PROGRAM REVIEWED*: No *COPY OF PRESCRIPTION DRUG MONITORING REPORT IN PATIENT MANDO: No Instructions: Viral Gastroenteritis, Adult, [id number] Referrals: PCP,None [Primary Care Provider] - Forms: ED Department Discharge Additional Instructions: Take loperamide per package instructions for diarrhea. Clear liquids only until no vomiting for 12 hrs, then advance diet slowly as tolerated. Recheck with your provider if not improving. Sepsis Event Note - Evaluation Sepsis Screening Result: No Definite Risk - Focused Exam Vital Signs: Vital Signs Temp Pulse Resp BP Pulse Ox 08/11/19 15:29 36.8 C 57 L 14 158/98 H 97 08/11/19 15:27 36.8 C 57 L 14 158/98 H 97 Date Exam was Performed: 08/11/19 Time Exam was Performed: 17:00 - My Orders Last 24 Hours: My Active Orders 08/11/19 15:45 Orthostatic Vital Signs [RC] ASDIRECTED 08/11/19 16:20 Lactated Ringers [Ringers, Lactated] 1,000 ml IV BOLUS 08/11/19 17:00 Atropine/Diphenoxylate [Lomotil 0.025-2.5 MG] 1 tab PO ONETIME ONE - Assessment/Plan Last 24 Hours: My Active Orders 08/11/19 15:45 Orthostatic Vital Signs [RC] ASDIRECTED 08/11/19 16:20 Lactated Ringers [Ringers, Lactated] 1,000 ml IV BOLUS 01/09/20 17:00 Atropine/Diphenoxylate [Lomotil 0.025-2.5 MG] 1 tab PO ONETIME ONE
[2019-08-11] MEDS ORDERED: Atropine/Diphenoxylate 0.025-2.5 MG Tab PO ONE (17:00)
== END 2019-08-11 17:21 | disposition home or self-care (01) ==
LOC: JP.ED 15:03
DX: A08.4 Viral intestinal infection, unspecified (principal); F17.210 Nicotine dependence, cigarettes, uncomplicated; J45.909 Unspecified asthma, uncomplicated; E66.9 Obesity, unspecified; Z88.6 Allergy status to analgesic agent; Z88.0 Allergy status to penicillin; Z88.1 Allergy status to other antibiotic agents; Z88.2 Allergy status to sulfonamides; Z88.5 Allergy status to narcotic agent; Z68.29 Body mass index [BMI] 29.0-29.9, adult
CPT/HCPCS: 36415; 80048; 85027; 96360; 99283; 99284; A9270; J7120

== ENCOUNTER 2019-09-14 19:48 | Emergency (ER) | payer MEDICAID ==
[2019-09-14 20:00] VITALS: BP 153/103; PULSE 66
--- NOTE | 2019-09-14 21:24 | EDM.PDOC ---
ED HPI GENERAL MEDICAL PROBLEM - General Chief Complaint: Gastrointestinal Problem Stated Complaint: VOMITING,CHILLS,FEVER Time Seen by Provider: 09/14/19 21:00 Source of Information: Reports: Patient History Limitations: Reports: No Limitations - History of Present Illness INITIAL COMMENTS - FREE TEXT/NARRATIVE: 34-year-old smoker with history of asthma presents with concerns of cough, muscle aches, fatigue, headache, nausea. She reports the symptoms have been ongoing for approximately 1 month. + subjective fever. She is not vomiting. Her cough has been productive of phlegm, no hemoptysis. She continues to smoke. She has been trying her albuterol inhaler occasionally with some relief in the cough. She denies any chest pain. No diarrhea. Middle Chest Pain Score (Numeric/FACES): 8 - Related Data Allergies Allergy/AdvReac Type Severity Reaction Status Date / Time doxycycline Allergy Itching Verified 09/14/19 20:01 ibuprofen Allergy Hives Verified 09/14/19 20:01 Penicillins Allergy Hives Verified 09/14/19 20:01 Sulfa (Sulfonamide Allergy Hives Verified 09/14/19 20:01 Antibiotics) codeine phosphate AdvReac Nausea and Verified 09/14/19 20:01 [From Tylenol-Codeine #3] Vomiting erythromycin base AdvReac Dizziness Verified 09/14/19 20:01 Home Meds: Home Meds Albuterol Sulfate [Albuterol Sulfate Hfa] 1 puff PO ASDIRECTED 09/14/19 [History ] Azithromycin [Zithromax] 250 mg PO DAILY 09/14/19 [History] Past Medical History HEENT History: Reports: Impaired Vision, Other (See Below) Other HEENT History: Dental abscess Cardiovascular History: Reports: Heart Murmur Respiratory History: Reports: Asthma, Pneumothorax, Other (See Below) Other Respiratory History: collapsed lung hx Gastrointestinal History: Reports: Cholelithiasis, GERD 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 History: Reports: None 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: Musculoskeletal History: Reports: Back Pain, Chronic Neurological History: Reports: Migraines Psychiatric History: Reports: Anxiety, Panic Attack Endocrine/Metabolic History: Reports: Obesity/BMI 30+ - Infectious Disease History Infectious Disease History: Reports: Chicken Pox - Past Surgical History Head Surgeries/Procedures: Reports: None HEENT Surgical History: Reports: Adenoidectomy, Tonsillectomy Cardiovascular Surgical History: Reports: None Respiratory Surgical History: Reports: None GI Surgical History: Reports: Cholecystectomy, Colonoscopy, EGD Female Surgical History: Reports: Section, Salpingo-Oophorectomy Endocrine Surgical History: Reports: None Neurological Surgical History: Reports: None Musculoskeletal Surgical History: Reports: None Dermatological Surgical History: Reports: None Social & Family History - Family History Family Medical History: Noncontributory Cardiac: Reports: [place] - Tobacco Use Smoking Status *Q: Current Every Day Smoker Years of Tobacco use: 21 Packs/Tins Daily: 0.5 - Caffeine Use Caffeine Use: Reports: Soda Caffeine Use Comment: Anergis dew - Recreational Drug Use Recreational Drug Use: No ED ROS GENERAL - Review of Systems Review Of Systems: See Below Constitutional: Reports: Fever HEENT: Reports: No Symptoms Respiratory: Reports: Shortness of Breath, Cough Cardiovascular: Reports: No Symptoms Endocrine: Reports: No Symptoms GI/Abdominal: Reports: Nausea Musculoskeletal: Reports: Muscle Pain Skin: Reports: No Symptoms Neurological: Reports: Headache Psychiatric: Reports: No Symptoms Hematologic/Lymphatic: Reports: No Symptoms Immunologic: Reports: No Symptoms ED EXAM, GI/ABD - Physical Exam Exam: See Below Exam Limited By: No Limitations General Appearance: Alert, No Apparent Distress Ears: Normal External Exam Nose: Normal Inspection Throat/Mouth: Normal Inspection Head: Atraumatic, Normocephalic Neck: Normal Inspection (radiology) Respiratory/Chest: No Respiratory Distress, Wheezing Cardiovascular: Regular Rate, Rhythm GI/Abdominal Exam: Soft, Non-Tender Back Exam: Normal Inspection Extremities: Normal Inspection Neurological: Alert, Oriented Psychiatric: Normal Affect, Normal Mood Skin Exam: Warm, Dry Course - Vital Signs Last Recorded V/S: Last Vital Signs Temp 37.3 C 09/14/19 20:02 Pulse 66 09/14/19 20:02 Resp 20 09/14/19 20:02 BP 153/103 H 09/14/19 20:02 Pulse Ox 95 09/14/19 20:02 - Orders/Labs/Meds Orders: Active Orders 24 hr Category Date Time Status RT Aerosol Therapy [RC] ASDIRECTED Care 09/14/19 22:09 Ordered CXR [Chest 2V] [CR] Stat Exams 09/14/19 21:31 Ordered Meds: Medications Discontinued Medications Generic Name Dose Route Start Last Admin Trade Name Freq PRN Reason Stop Dose Admin Acetaminophen 650 mg 09/14/19 22:10 Tylenol PO 09/14/19 22:11 NOW ONE Albuterol 0.63 mg 09/14/19 22:09 Proventil Neb Soln NEB 09/14/19 22:10 ONETIME ONE - Re-Assessments/Exams Free Text/Narrative Re-Assessment/Exam: 34 yo presents with constellation of symptoms consistent with viral illness Overall well appearing, normal vitals, is wheezing on exam. Reports hx of PTX. Will check CXR Flu negative Suspect this is recurrent viral infection If CXR unremarkable stable for discharge with continued supportive cares, will prescribe short course of prednisone given wheezing and hx of asthma. Discussed smoking cessation. 09/14/19 21:53 Free Text/Narrative Re-Assessment/Exam: CXR unremarkable Will administer nebs, then appropriate for discharge 09/14/19 22:13 Departure - Departure Time of Disposition: 22:14 Disposition: Home, Self-Care 01 Clinical Impression: Viral respiratory illness Asthma exacerbation Qualifiers: Asthma severity: mild Asthma persistence: unspecified Qualified Code(s): J45.901 - Unspecified asthma with (acute) exacerbation - Discharge Information Instructions: Asthma, Adult, Viral Respiratory Infection, [id number] Referrals: PCP,None [Primary Care Provider] - Forms: ED Department Discharge Additional Instructions: Please take the prescribed steroids for your asthma. You likely have a viral infection and this, along with smoking, at making your breathing worse. Consider stopping smoking. Follow up with your primary doctor as needed Return to the ER for worsening breathing Sepsis Event Note - Evaluation Sepsis Screening Result: No Definite Risk - Focused Exam Vital Signs: Vital Signs Temp Pulse Resp BP Pulse Ox 09/14/19 20:02 37.3 C 66 20 153/103 H 95 09/14/19 19:58 37.3 C 66 20 153/103 H 95 Date Exam was Performed: 09/14/19 Time Exam was Performed: 22:12 - My Orders Last 24 Hours: My Active Orders 09/14/19 21:31 CXR [Chest 2V] [CR] Stat 09/14/19 22:09 RT Aerosol Therapy [RC] ASDIRECTED - Assessment/Plan Last 24 Hours: My Active Orders 09/14/19 21:31 CXR [Chest 2V] [CR] Stat 09/14/19 22:09 RT Aerosol Therapy [RC] ASDIRECTED
[2019-09-14] MEDS ORDERED: Albuterol 0.021% 0.63 MG/3 ML Neb Soln NEB ONE (22:09)
[2019-09-14] MEDS ORDERED: Acetaminophen 325 MG Tab PO ONE (22:10)
[2019-09-14] MEDS ORDERED: Albuterol 0.083% 2.5 MG/3 ML Neb Soln NEB ONE (22:13)
--- NOTE | 2019-09-15 09:10 | CR ---
CHEST: 2 view CLINICAL HISTORY:Cough, dyspnea COMPARISON:2017 FINDINGS: The heart size, pulmonary vascular and hilar structures are normal. No infiltrate effusion or pneumothorax is seen. IMPRESSION: No acute cardiopulmonary process.
== END 2019-09-14 22:32 | disposition home or self-care (01) ==
LOC: JP.ED 19:48
DX: J45.901 Unspecified asthma with (acute) exacerbation (principal); J06.9 Acute upper respiratory infection, unspecified; J45.909 Unspecified asthma, uncomplicated; E66.9 Obesity, unspecified; F17.210 Nicotine dependence, cigarettes, uncomplicated; Z88.1 Allergy status to other antibiotic agents; Z88.6 Allergy status to analgesic agent; Z88.0 Allergy status to penicillin; Z88.2 Allergy status to sulfonamides; Z88.5 Allergy status to narcotic agent; Z68.30 Body mass index [BMI] 30.0-30.9, adult; Z79.899 Other long term (current) drug therapy
CPT/HCPCS: 71046; 87804; 99284; A9270

== ENCOUNTER 2019-11-03 16:03 | Emergency (ER) | payer MEDICAID ==
--- NOTE | 2019-11-03 16:29 | EDM.PDOC ---
ED HPI GENERAL MEDICAL PROBLEM - General Chief Complaint: General Stated Complaint: TOOTHACHE Time Seen by Provider: 11/03/19 16:19 Source of Information: Reports: Patient, RN Notes Reviewed History Limitations: Reports: No Limitations - History of Present Illness INITIAL COMMENTS - FREE TEXT/NARRATIVE: 34-year-old female presents emergency department with a complaint of dental pain , she does have one broken tooth very poor dentition unfortunately because the current pandemic no dental offices are open until the end of the month Left Upper Jaw Pain Score (Numeric/FACES): 8 - Related Data Allergies Allergy/AdvReac Type Severity Reaction Status Date / Time doxycycline Allergy Itching Verified 11/03/19 16:11 ibuprofen Allergy Hives Verified 11/03/19 16:11 Penicillins Allergy Hives Verified 11/03/19 16:11 Sulfa (Sulfonamide Allergy Hives Verified 11/03/19 16:11 Antibiotics) codeine phosphate AdvReac Nausea and Verified 11/03/19 16:11 [From Tylenol-Codeine #3] Vomiting erythromycin base AdvReac Dizziness Verified 11/03/19 16:11 Home Meds: Home Meds Albuterol Sulfate [Albuterol Sulfate Hfa] 1 puff PO ASDIRECTED 09/14/19 [History ] Past Medical History HEENT History: Reports: Impaired Vision, Other (See Below) Other HEENT History: Dental abscess Cardiovascular History: Reports: Heart Murmur Respiratory History: Reports: Asthma, Pneumothorax, Other (See Below) Other Respiratory History: collapsed lung hx Gastrointestinal History: Reports: Cholelithiasis, GERD 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 History: Reports: None 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: Musculoskeletal History: Reports: Back Pain, Chronic Neurological History: Reports: Migraines Psychiatric History: Reports: Anxiety, Panic Attack Endocrine/Metabolic History: Reports: Obesity/BMI 30+ - Infectious Disease History Infectious Disease History: Reports: Chicken Pox - Past Surgical History Head Surgeries/Procedures: Reports: None HEENT Surgical History: Reports: Adenoidectomy, Tonsillectomy Cardiovascular Surgical History: Reports: None Respiratory Surgical History: Reports: None GI Surgical History: Reports: Cholecystectomy, Colonoscopy, EGD Female Surgical History: Reports: Section, Salpingo-Oophorectomy Endocrine Surgical History: Reports: None Neurological Surgical History: Reports: None Musculoskeletal Surgical History: Reports: None Dermatological Surgical History: Reports: None Social & Family History - Family History Family Medical History: Noncontributory Cardiac: Reports: [place] - Tobacco Use Smoking Status *Q: Current Every Day Smoker Years of Tobacco use: 15 Packs/Tins Daily: 0.5 Used Tobacco, but Quit: No Second Hand Smoke Exposure: No - Caffeine Use Caffeine Use: Reports: Soda Caffeine Use Comment: korey strickland - Recreational Drug Use Recreational Drug Use: No ED ROS GENERAL - Review of Systems Review Of Systems: See Below Constitutional: Denies: Fever, Chills HEENT: Reports: Dental Pain Respiratory: Reports: No Symptoms Cardiovascular: Reports: No Symptoms ED EXAM, GENERAL - Physical Exam Exam: See Below Free Text/Narrative:: Mouth mucosa is moist and pink dentition is poor tooth #4 has significant caries and is partially missing also tooth #31 is broken off at the root, tender to the touch over tooth #4 Course - Vital Signs Last Recorded V/S: Last Vital Signs Temp 97.9 F 11/03/19 16:14 Pulse 64 11/03/19 16:14 Resp 16 11/03/19 16:14 BP 151/84 H 11/03/19 16:14 Pulse Ox 97 11/03/19 16:14 Departure - Departure Time of Disposition: 16:28 Disposition: Home, Self-Care 01 Condition: Fair Clinical Impression: Pain, dental - Discharge Information Instructions: Acute Pain, Adult Referrals: PCP,None [Primary Care Provider] - Additional Instructions: Take full course of antibiotics, use ibuprofen for baseline pain control use hydrocodone for breakthrough pain please follow-up with dentistry as soon as possible Sepsis Event Note - Evaluation Sepsis Screening Result: No Definite Risk - Focused Exam Vital Signs: Vital Signs Temp Pulse Resp BP Pulse Ox 11/03/19 16:14 97.9 F 64 16 151/84 H 97 11/03/19 16:13 97.9 F 64 16 151/84 H 97 Date Exam was Performed: 11/03/19 Time Exam was Performed: 16:26 - Assessment/Plan Plan: Assessment Acuity = acute Site and laterality = dental pain tooth #4 Etiology = severe dental caries Manifestations = none Location of injury = Home Lab values = none Plan Prescription clindamycin 300 mg p.o. 4 times daily x7 days, hydrocodone 5/325 1 tab p.o. 3 times daily PRN total #20 follow-up with dentistry as soon as possible This note was dictated using [employer] voice recognition software please call with any questions on syntax or grammar.
== END 2019-11-03 16:33 | disposition home or self-care (01) ==
LOC: JP.ED 16:03
CPT/HCPCS: 99282; 99283

== ENCOUNTER 2020-01-02 10:41 | Emergency (ER) | payer MEDICAID ==
[2020-01-02 10:55] VITALS: BP 127/84; PULSE 77
--- NOTE | 2020-01-02 11:34 | EDM.PDOC ---
ED HPI GENERAL MEDICAL PROBLEM - General Chief Complaint: Bite:Animal, Insect Stated Complaint: rash on body ITCHEY Time Seen by Provider: 01/02/20 11:26 Source of Information: Reports: Patient History Limitations: Reports: No Limitations - History of Present Illness INITIAL COMMENTS - FREE TEXT/NARRATIVE: 34 year old female present to ER for rash on upper thighs, back , upper arms and chest which itches with small raised red bumps. Patient has notice the rash over the last 3-5 days which has been getting worse. Patient denies any new exposures to lotions soap or perfumes. 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 Patient gets up around 4 am to got out to harvest leaches from bait set out daily. - Related Data Allergies Allergy/AdvReac Type Severity Reaction Status Date / Time doxycycline Allergy Itching Verified 11/03/19 16:11 ibuprofen Allergy Hives Verified 11/03/19 16:11 Penicillins Allergy Hives Verified 11/03/19 16:11 Sulfa (Sulfonamide Allergy Hives Verified 11/03/19 16:11 Antibiotics) codeine phosphate AdvReac Nausea and Verified 11/03/19 16:11 [From Tylenol-Codeine #3] Vomiting erythromycin base AdvReac Dizziness Verified 11/03/19 16:11 Home Meds: Home Meds Albuterol Sulfate [Albuterol Sulfate Hfa] 1 puff PO ASDIRECTED 09/14/19 [History ] hydrOXYzine HCL [Atarax] 25 - 50 mg PO Q6H PRN 30 Days #60 tab 01/02/20 [Rx] Past Medical History HEENT History: Reports: Impaired Vision, Other (See Below) Other HEENT History: Dental abscess Cardiovascular History: Reports: Heart Murmur Respiratory History: Reports: Asthma, Pneumothorax, Other (See Below) Other Respiratory History: collapsed lung hx Gastrointestinal History: Reports: Cholelithiasis, GERD 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 History: Reports: None 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: Musculoskeletal History: Reports: Back Pain, Chronic Neurological History: Reports: Migraines Psychiatric History: Reports: Anxiety, Panic Attack Endocrine/Metabolic History: Reports: Obesity/BMI 30+ - Infectious Disease History Infectious Disease History: Reports: Chicken Pox - Past Surgical History Head Surgeries/Procedures: Reports: None HEENT Surgical History: Reports: Adenoidectomy, Tonsillectomy Cardiovascular Surgical History: Reports: None Respiratory Surgical History: Reports: None GI Surgical History: Reports: Cholecystectomy, Colonoscopy, EGD Female Surgical History: Reports: Section, Salpingo-Oophorectomy Endocrine Surgical History: Reports: None Neurological Surgical History: Reports: None Musculoskeletal Surgical History: Reports: None Dermatological Surgical History: Reports: None Social & Family History - Family History Family Medical History: Noncontributory Cardiac: Reports: [place] - Tobacco Use Smoking Status *Q: Current Every Day Smoker Years of Tobacco use: 15 Packs/Tins Daily: 0.5 - Caffeine Use Caffeine Use: Reports: Soda Caffeine Use Comment: mountain dew - Recreational Drug Use Recreational Drug Use: No ED ROS GENERAL - Review of Systems Review Of Systems: Comprehensive ROS is negative, except as noted in HPI. ED EXAM, ANIMAL BITE - Physical Exam Exam: See Below Exam Limited By: No Limitations General Appearance: Alert, WD/WN, Mild Distress (itching) Eye Exam: Bilateral Eye: EOMI Ears: Normal External Exam Nose: Normal Inspection Throat/Mouth: Normal Inspection, Normal Voice, No Airway Compromise Head: Atraumatic Neck: Normal Inspection Respiratory/Chest: No Respiratory Distress, Lungs Clear, Normal Breath Sounds Cardiovascular: Normal Peripheral Pulses, Regular Rate, Rhythm Skin Exam: Rash (erythematous papules on bilateral upper legs, arms, back an chest consistent with insect bites) Course - Vital Signs Last Recorded V/S: Last Vital Signs Temp 37.2 C 01/02/20 11:05 Pulse 77 01/02/20 11:05 Resp 16 01/02/20 11:05 BP 127/84 01/02/20 11:05 Pulse Ox 96 01/02/20 11:05 Departure - Departure Time of Disposition: 11:41 Disposition: Home, Self-Care 01 Clinical Impression: Insect bites - Discharge Information Prescriptions: hydrOXYzine HCL [Atarax] 25 - 50 mg PO Q6H PRN 30 Days #60 tab PRN Reason: Itching Instructions: Insect Bite, Adult, Tick Bite Information, Adult Referrals: PCP,None [Primary Care Provider] - Additional Instructions: 1. Hydroxyzine 25-50 mg every 6 hours (or just at night) as needed for itching and rash to decrease allergic response to bites. 2. 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 3. Consider spraying off on your body 15-20 before going out to harvest leaches and prevent bits from occurring. 4. You may consider wearing long sleeves and long pants to prevent bites and subsequent itching. 5. Contact PCP for recheck in 1-2 weeks if symptoms are not improving with treatment recommendations. Sepsis Event Note - Evaluation Sepsis Screening Result: No Definite Risk - Focused Exam Vital Signs: Vital Signs Temp Pulse Resp BP Pulse Ox 01/02/20 11:05 37.2 C 77 16 127/84 96 01/02/20 10:53 37.2 C 77 16 127/84 96 Date Exam was Performed: 01/02/20 Time Exam was Performed: 11:26
== END 2020-01-02 11:58 | disposition home or self-care (01) ==
LOC: JP.ED 10:41
DX: S70.362A Insect bite (nonvenomous), left thigh, initial encounter (principal); S70.361A Insect bite (nonvenomous), right thigh, initial encounter; S40.862A Insect bite (nonvenomous) of left upper arm, initial encounter; S40.861A Insect bite (nonvenomous) of right upper arm, initial encounter; S20.369A Insect bite (nonvenomous) of unspecified front wall of thorax, initial encounter; J45.909 Unspecified asthma, uncomplicated; E66.9 Obesity, unspecified; Z68.30 Body mass index [BMI] 30.0-30.9, adult; F17.210 Nicotine dependence, cigarettes, uncomplicated; Z88.1 Allergy status to other antibiotic agents; Z88.0 Allergy status to penicillin; Z88.2 Allergy status to sulfonamides; Z88.5 Allergy status to narcotic agent; Z88.8 Allergy status to other drugs, medicaments and biological substances; Z79.899 Other long term (current) drug therapy; W57.XXXA Bitten or stung by nonvenomous insect and other nonvenomous arthropods, initial encounter
CPT/HCPCS: 99282

== ENCOUNTER 2020-03-09 00:03 | Emergency (ER) | payer MEDICAID ==
[2020-03-09] MEDS ORDERED: Sodium Chloride 0.9% 10 ML Syringe FLUSH PRN (00:29)
[2020-03-09] MEDS ORDERED: Lactated Ringers 1,000 ML IV SCH (00:30)
[2020-03-09] MEDS ORDERED: fentaNYL 100 MCG/2 ML SDV IVPUSH ONE (00:31)
[2020-03-09] MEDS ORDERED: Ondansetron 4 MG/2 ML SDV IVPUSH ONE (00:31)
[2020-03-09] MEDS ORDERED: Albuterol 8 GM Inhaler INH ONE (00:33)
--- NOTE | 2020-03-09 00:35 | EDM.PDOC ---
ED HPI GENERAL MEDICAL PROBLEM - General Chief Complaint: Abdominal Pain Stated Complaint: STOMACH ACHE Time Seen by Provider: 03/09/20 00:23 Source of Information: Reports: Patient, Family, RN Notes Reviewed History Limitations: Reports: No Limitations - History of Present Illness INITIAL COMMENTS - FREE TEXT/NARRATIVE: 35-year-old female presents emergency department a complaint of abdominal pain, she states his been ill for the last 3 days she describes her pain as mainly abdominal distention epigastric region worse after she eats. She has had some shortness of breath no fevers no problem with bowel movements or urination, did have fever 2 days ago now resolved Abdominal Pain Score (Numeric/FACES): 7 - Related Data Allergies Allergy/AdvReac Type Severity Reaction Status Date / Time doxycycline Allergy Itching Verified 03/09/20 00:11 ibuprofen Allergy Hives Verified 03/09/20 00:11 Penicillins Allergy Hives Verified 03/09/20 00:11 Sulfa (Sulfonamide Allergy Hives Verified 03/09/20 00:11 Antibiotics) codeine phosphate AdvReac Nausea and Verified 03/09/20 00:11 [From Tylenol-Codeine #3] Vomiting erythromycin base AdvReac Dizziness Verified 03/09/20 00:11 Home Meds: Home Meds Albuterol Sulfate [Albuterol Sulfate Hfa] 1 puff PO ASDIRECTED 09/14/19 [History] Past Medical History HEENT History: Reports: Allergic Rhinitis, Glaucoma, Impaired Vision, Other (See Below) Other HEENT History: Dental abscess Cardiovascular History: Reports: Heart Murmur Respiratory History: Reports: Asthma, Pneumothorax, Other (See Below) Other Respiratory History: collapsed lung hx Gastrointestinal History: Reports: Cholelithiasis, GERD WELL LO[employer]ING [employer] ANALYSIS History: Reports: Musculoskeletal History: Reports: Back Pain, Chronic Neurological History: Reports: Migraines Psychiatric History: Reports: Anxiety, Bipolar, Panic Attack Endocrine/Metabolic History: Reports: Obesity/BMI 30+ - Infectious Disease History Infectious Disease History: Reports: Chicken Pox - Past Surgical History Head Surgeries/Procedures: Reports: None HEENT Surgical History: Reports: Adenoidectomy, Tonsillectomy Cardiovascular Surgical History: Reports: None Respiratory Surgical History: Reports: None GI Surgical History: Reports: Cholecystectomy, Colonoscopy, EGD Female Surgical History: Reports: Section, Tubal Ligation Endocrine Surgical History: Reports: None Neurological Surgical History: Reports: None Musculoskeletal Surgical History: Reports: None Dermatological Surgical History: Reports: None Social & Family History - Family History Family Medical History: Noncontributory Cardiac: Reports: [place] - Tobacco Use Smoking Status *Q: Current Every Day Smoker Years of Tobacco use: 20 Packs/Tins Daily: 0.5 - Caffeine Use Caffeine Use: Reports: Soda Caffeine Use Comment: mountain dew - Recreational Drug Use Recreational Drug Use: No ED ROS GENERAL - Review of Systems Review Of Systems: See Below Constitutional: Reports: Fever, Chills HEENT: Reports: No Symptoms Respiratory: Reports: Shortness of Breath, Wheezing, Cough. Denies: Sputum Cardiovascular: Reports: Dyspnea on Exertion GI/Abdominal: Reports: Abdominal Pain, Flatus, Nausea. Denies: Constipation, Diarrhea, Vomiting : Reports: No Symptoms Musculoskeletal: Reports: No Symptoms Skin: Reports: No Symptoms ED EXAM, GI/ABD - Physical Exam Exam: See Below Exam Limited By: No Limitations General Appearance: Alert, WD/WN, No Apparent Distress Respiratory/Chest: No Respiratory Distress, No Accessory Muscle Use, Wheezing Cardiovascular: Regular Rate, Rhythm, No Murmur GI/Abdominal Exam: Soft, Distended, Tender (Epigastric region) Back Exam: Normal Inspection, Full Range of Motion. No: CVA Tenderness (R), CVA Tenderness (L) Course - Vital Signs Last Recorded V/S: Last Vital Signs Temp 98.8 F 03/09/20 00:13 Pulse 59 L 03/09/20 02:06 Resp 17 03/09/20 02:06 BP 146/78 H 03/09/20 02:06 Pulse Ox 98 03/09/20 02:06 - Orders/Labs/Meds Orders: Active Orders 24 hr Category Date Time Status Peripheral IV Care [RC] . DIRECTED Care 03/09/20 00:29 Active RT Post Treatment Assessment [RC] Click to Edit Care 03/09/20 00:33 Active Chest 2V [CR] Urgent Exams 03/09/20 00:29 Taken Iopamidol [Isovue-300 (61%)] Med 03/09/20 00:47 Active 100 ml IV . DIRECTED PRN Lactated Ringers [Ringers, Lactated] 1,000 ml Med 03/09/20 00:30 Active IV ASDIRECTED Sodium Chloride 0.9% [Normal Saline] 80 ml Med 03/09/20 01:00 Active IV ASDIRECTED Sodium Chloride 0.9% [Saline Flush] Med 03/09/20 00:29 Active 10 ml FLUSH ASDIRECTED PRN Peripheral IV Insertion Adult [OM.PC] Urgent Oth 03/09/20 00:29 Ordered Medication Orders Lactated Ringer's (Ringers, Lactated) 1,000 mls @ 999 mls/hr IV ASDIRECTED PAOLO Last Admin: 03/09/20 00:41 Dose: 999 mls/hr Documented by: ZHENG Sodium Chloride (Normal Saline) 80 mls @ 3 mls/sec IV ASDIRECTED PAOLO Last Admin: 03/09/20 01:09 Dose: 3 mls/sec Documented by: JENNI Iopamidol (Isovue-300 (61%)) 100 ml IV . DIRECTED PRN PRN Reason: RADIOLOGY EXAM Stop: 03/10/20 00:48 Last Admin: 03/09/20 01:09 Dose: 100 ml Documented by: JENNI Sodium Chloride (Saline Flush) 10 ml FLUSH ASDIRECTED PRN PRN Reason: Keep Vein Open Last Admin: 03/09/20 00:41 Dose: 10 ml Documented by: ZHENG Labs: Laboratory Tests 03/09/20 03/09/20 03/09/20 Range/Units 00:44 00:44 00:44 WBC 9.7 (4.5-11.0) K/uL RBC 4.73 (3.30-5.50) M/uL Hgb 14.7 (12.0-15.0) g/dL Hct 43.6 (36.0-48.0) % MCV 92 (80-98) fL MCH 31 (27-31) pg MCHC 34 (32-36) % Plt Count 277 (150-400) K/uL Neut % (Auto) 57 (36-66) % Lymph % (Auto) 30 (24-44) % [place] % (Auto) 7 H (2-6) % Eos % (Auto) 5 H (2-4) % Baso % (Auto) 1 (0-1) % Sodium 141 (140-148) mmol/L Potassium 3.5 L (3.6-5.2) mmol/L Chloride 108 (100-108) mmol/L Carbon Dioxide 24 (21-32) mmol/L Anion Gap 12.5 (5.0-14.0) mmol/L BUN 9 (7-18) mg/dL Creatinine 1.0 (0.6-1.0) mg/dL Est Cr Clr Drug Dosing 73.51 mL/min Estimated GFR (MDRD) > 60 (>60) Glucose 113 H (74-106) mg/dL Lactic Acid 1.2 (0.4-2.0) mmol/L Calcium 8.6 (8.5-10.1) mg/dL Total Bilirubin 0.3 (0.2-1.0) mg/dL AST 15 (15-37) U/L ALT 19 (12-78) U/L Alkaline Phosphatase 70 (46-116) U/L Lactate Dehydrogenase (82-234) U/L Troponin I < 0.017 (0.000-0.056) ng/mL Total Protein 7.4 (6.4-8.2) g/dL Albumin 3.7 (3.4-5.0) g/dL Globulin 3.7 H (2.3-3.5) g/dL Albumin/Globulin Ratio 1.0 L (1.2-2.2) Lipase 160 (73-393) U/L Urine Color (YELLOW) Urine Appearance (CLEAR) Urine pH (5.0-8.0) Ur Specific [place] (1.008-1.030) Urine Protein (NEGATIVE) mg/dL Urine Glucose (UA) (NEGATIVE) mg/dL Urine Ketones (NEGATIVE) mg/dL Urine Occult Blood (NEGATIVE) Urine Nitrite (NEGATIVE) Urine Bilirubin (NEGATIVE) Urine Urobilinogen (0.2-1.0) EU/dL Ur Leukocyte Esterase (NEGATIVE) Urine RBC (0-5) Urine WBC (0-5) Ur Epithelial Cells Amorphous Sediment Urine Bacteria Urine Mucus Urine HCG, Qual 03/09/20 03/09/20 03/09/20 Range/Units 00:44 00:57 00:57 WBC (4.5-11.0) K/uL RBC (3.30-5.50) M/uL Hgb (12.0-15.0) g/dL Hct (36.0-48.0) % MCV (80-98) fL MCH (27-31) pg MCHC (32-36) % Plt Count (150-400) K/uL Neut % (Auto) (36-66) % Lymph % (Auto) (24-44) % [place] % (Auto) (2-6) % Eos % (Auto) (2-4) % Baso % (Auto) (0-1) % Sodium (140-148) mmol/L Potassium (3.6-5.2) mmol/L Chloride (100-108) mmol/L Carbon Dioxide (21-32) mmol/L Anion Gap (5.0-14.0) mmol/L BUN (7-18) mg/dL Creatinine (0.6-1.0) mg/dL Est Cr Clr Drug Dosing mL/min Estimated GFR (MDRD) (>60) Glucose (74-106) mg/dL Lactic Acid (0.4-2.0) mmol/L Calcium (8.5-10.1) mg/dL Total Bilirubin (0.2-1.0) mg/dL AST (15-37) U/L ALT (12-78) U/L Alkaline Phosphatase (46-116) U/L Lactate Dehydrogenase 159 (82-234) U/L Troponin I (0.000-0.056) ng/mL Total Protein (6.4-8.2) g/dL Albumin (3.4-5.0) g/dL Globulin (2.3-3.5) g/dL Albumin/Globulin Ratio (1.2-2.2) Lipase (73-393) U/L Urine Color Red A (YELLOW) Urine Appearance Slightly cloudy A (CLEAR) Urine pH 7.5 (5.0-8.0) Ur Specific [place] 1.020 (1.008-1.030) Urine Protein Negative (NEGATIVE) mg/dL Urine Glucose (UA) Negative (NEGATIVE) mg/dL Urine Ketones Negative (NEGATIVE) mg/dL Urine Occult Blood Large H (NEGATIVE) Urine Nitrite Negative (NEGATIVE) Urine Bilirubin Negative (NEGATIVE) Urine Urobilinogen 0.2 (0.2-1.0) EU/dL Ur Leukocyte Esterase Negative (NEGATIVE) Urine RBC >100 H (0-5) Urine WBC 0-5 (0-5) Ur Epithelial Cells Few Amorphous Sediment Not seen Urine Bacteria Few Urine Mucus Few Urine HCG, Qual Negative Meds: Medications Generic Name Dose Route Start Last Admin Trade Name Freq PRN Reason Stop Dose Admin Lactated Ringer's 1,000 mls @ 999 mls/hr 03/09/20 00:30 03/09/20 00:41 Ringers, Lactated IV 999 mls/hr ASDIRECTED PAOLO Administration Sodium Chloride 80 mls @ 3 mls/sec 03/09/20 01:00 03/09/20 01:09 Normal Saline IV 3 mls/sec ASDIRECTED PAOLO Administration Iopamidol 100 ml 03/09/20 00:47 03/09/20 01:09 Isovue-300 (61%) IV 03/10/20 00:48 100 ml . DIRECTED PRN Administration RADIOLOGY EXAM Sodium Chloride 10 ml 03/09/20 00:29 03/09/20 00:41 Saline Flush FLUSH 10 ml ASDIRECTED PRN Administration Keep Vein Open Discontinued Medications Generic Name Dose Route Start Last Admin Trade Name Freq PRN Reason Stop Dose Admin Albuterol 2 gm 03/09/20 00:33 03/09/20 01:01 Ventolin Hfa INH 03/09/20 00:34 1 puff ONETIME ONE Administration Al Hydroxide/Mg Hydroxide 15 0 ml 03/09/20 01:44 03/09/20 02:02 ml/ Lidocaine HCl 15 ml PO 03/09/20 01:45 15 ml ONETIME ONE Administration Fentanyl 50 mcg 03/09/20 00:31 03/09/20 00:41 Sublimaze IVPUSH 03/09/20 00:32 50 mcg ONETIME ONE Administration Ondansetron HCl 4 mg 03/09/20 00:31 03/09/20 00:41 Zofran IVPUSH 03/09/20 00:32 4 mg ONETIME ONE Administration Pantoprazole Sodium 40 mg 03/09/20 01:44 03/09/20 02:02 Protonix Iv IVPUSH 03/09/20 01:45 40 mg ONETIME ONE Administration Departure - Departure Time of Disposition: 02:51 Disposition: Home, Self-Care 01 Condition: Fair Clinical Impression: Abdominal pain Qualifiers: Abdominal location: epigastric Qualified Code(s): R10.13 - Epigastric pain - Discharge Information Referrals: PCP,None [Primary Care Provider] - Forms: ED Department Discharge, ED Return to Work/School Form Additional Instructions: Use hydrocodone as needed for pain control, use Zofran as needed for nausea vomiting symptoms, please followup with your primary care provider in 3-5 days if not better, please call return to the emergency department with worsening of symptoms. Sepsis Event Note (ED) - Evaluation Sepsis Screening Result: No Definite Risk - Focused Exam Vital Signs: Vital Signs Temp Pulse Resp BP Pulse Ox 03/09/20 02:06 59 L 17 146/78 H 98 03/09/20 00:13 98.8 F 62 19 124/73 97 03/09/20 00:12 98.8 F 62 19 124/73 97 - My Orders Last 24 Hours: My Active Orders 03/09/20 00:29 Peripheral IV Care [RC] . DIRECTED Chest 2V [CR] Urgent Sodium Chloride 0.9% [Saline Flush] 10 ml FLUSH ASDIRECTED PRN Peripheral IV Insertion Adult [OM.PC] Urgent 03/09/20 00:30 Lactated Ringers [Ringers, Lactated] 1,000 ml IV ASDIRECTED 03/09/20 00:33 RT Post Treatment Assessment [RC] Click to Edit 03/09/20 00:47 Iopamidol [Isovue-300 (61%)] 100 ml IV . DIRECTED PRN 03/09/20 01:00 Sodium Chloride 0.9% [Normal Saline] 80 ml IV ASDIRECTED - Assessment/Plan Last 24 Hours: My Active Orders 03/09/20 00:29 Peripheral IV Care [RC] . DIRECTED Chest 2V [CR] Urgent Sodium Chloride 0.9% [Saline Flush] 10 ml FLUSH ASDIRECTED PRN Peripheral IV Insertion Adult [OM.PC] Urgent 03/09/20 00:30 Lactated Ringers [Ringers, Lactated] 1,000 ml IV ASDIRECTED 03/09/20 00:33 RT Post Treatment Assessment [RC] Click to Edit 03/09/20 00:47 Iopamidol [Isovue-300 (61%)] 100 ml IV . DIRECTED PRN 03/09/20 01:00 Sodium Chloride 0.9% [Normal Saline] 80 ml IV ASDIRECTED Plan: Assessment Acuity = acute Site and laterality = abdominal pain Etiology = unknown Manifestations = nausea and vomiting Location of injury = Home Lab values = CBC, CMP, troponin all within normal limits, urinalysis does show significant amount of hematuria consistent with menstruation, chest x-ray shows no acute process CT scan of the abdomen no acute process Plan I did review lab work CT scan results with her she had a little bit of relief with combination Protonix and Zofran as well as fentanyl in the emergency department discharged home with hydrocodone 5/325 1 tab p.o. 3 times daily PRN total #8 and Zofran 4 mg ODT 1 tab p.o. 3 times daily PRN total #5 follow-up with primary care in 3 to 5 days if not better This note was dictated using [employer] voice recognition software please call with any questions on syntax or grammar.
[2020-03-09] MEDS ORDERED: Iopamidol 612 MG/ML 100 ML Bottle IV PRN (00:47)
[2020-03-09] MEDS ORDERED: Sodium Chloride 0.9% 80 ML IV SCH (01:00)
--- NOTE | 2020-03-09 01:30 | CRLCT ---
INDICATION: Epigastric pain, abdominal distention TECHNIQUE: CT Abdomen and pelvis with i.v. contrast. Coronal and sagittal reformats were obtained. CONTRAST: 100 mL Isovue 300 COMPARISON: 01/02/2015 FINDINGS: Lower chest: There is a stable 4 mm nodule present the right lower lobe and right middle lobe. The stability in over 2 years is suggestive of a benign etiology. Liver: Unremarkable. Spleen: Unremarkable. Pancreas: Unremarkable. Gallbladder: Previous cholecystectomy noted without significant intra- or extrahepatic biliary ductal dilatation seen. Kidney: Unremarkable. No kidney or ureteral stones or obstruction seen. Adrenal: Unremarkable. Bowel: Mild sigmoid diverticulosis is present with no evidence of diverticulitis. The appendix is normal in appearance and size. A small fat containing periumbilical hernia is present without significant interval change. Vascular: Unremarkable. Lymph: Unremarkable. Peritoneum: Unremarkable. No pneumoperitoneum is seen. No significant ascites is noted. Pelvis: Unremarkable. Soft tissue: Unremarkable. Bone: Unremarkable for age. IMPRESSION: 1. Unremarkable with no CT correlate for the patient`s symptoms seen. Dictated by Dieudonne Simmons MD @ 03/09/2020 1:30:10 AM Please note that all CT scans at this facility use dose modulation, iterative reconstruction, and/or weight-based dosing when appropriate to reduce radiation dose to as low as reasonably achievable. Dictated by: Dieudonne Simmons MD @ 03/09/2020 01:30:14 (Electronically Signed)
[2020-03-09] MEDS ORDERED: Pantoprazole 40 MG Vial IVPUSH ONE (01:44)
[2020-03-09] MEDS ORDERED: Alum Hydrox/Mag Hydrox/Simeth 15 ML, Lidocaine 2% 15 ML PO ONE ×2 (01:44)
[2020-03-09 02:07] VITALS: BP 146/78; PULSE 59
--- NOTE | 2020-03-09 09:03 | CR ---
CHEST: 2 view CLINICAL HISTORY:SOB COMPARISON: September 2019 FINDINGS: The heart size, pulmonary vascularity and hilar structures are normal. No infiltrate effusion or pneumothorax is seen. IMPRESSION: No acute cardiopulmonary process.
== END 2020-03-09 03:02 | disposition home or self-care (01) ==
LOC: JP.ED 00:03
DX: R10.13 Epigastric pain (principal); R06.02 Shortness of breath; J45.909 Unspecified asthma, uncomplicated; E66.9 Obesity, unspecified; F17.210 Nicotine dependence, cigarettes, uncomplicated; Z88.0 Allergy status to penicillin; Z88.1 Allergy status to other antibiotic agents; Z88.2 Allergy status to sulfonamides; Z88.5 Allergy status to narcotic agent; Z88.6 Allergy status to analgesic agent; Z90.49 Acquired absence of other specified parts of digestive tract; Z98.51 Tubal ligation status; Z98.890 Other specified postprocedural states; Z68.31 Body mass index [BMI] 31.0-31.9, adult
CPT/HCPCS: 36415; 71046; 74177; 80053; 81001; 81025; 83605; 83615; 83690; 84484; 85025; 94640; 96374; 96375; 99285; A9270; C9113; J2405; J3010; J7050; J7120; Q9967; 99284

== ENCOUNTER 2020-05-31 23:42 | Emergency (ER) | payer MEDICAID ==
[2020-06-01] VITALS: BP 161/83; PULSE 66
--- NOTE | 2020-06-01 00:21 | EDM.PDOC ---
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 The reason that she comes in today is that she works every day does not have time to go to the clinic and she just cannot take it anymore. She also has an allergy to all NSAIDs which cause a rash and is only been using Tylenol which does not help for her Bilateral Feet Pain Score (Numeric/FACES): 10 - Related Data Allergies Allergy/AdvReac Type Severity Reaction Status Date / Time doxycycline Allergy Itching Verified 05/31/20 23:58 ibuprofen Allergy Hives Verified 05/31/20 23:58 latex Allergy Hives Verified 06/01/20 00:04 Penicillins Allergy Hives Verified 05/31/20 23:58 Sulfa (Sulfonamide Allergy Hives Verified 05/31/20 23:58 Antibiotics) codeine phosphate AdvReac Nausea and Verified 05/31/20 23:58 [From Tylenol-Codeine #3] Vomiting erythromycin base AdvReac Dizziness Verified 05/31/20 23:58 Home Meds: Home Meds Albuterol Sulfate [Albuterol Sulfate Hfa] 1 puff PO ASDIRECTED 09/14/19 [History] Past Medical History HEENT History: Reports: Allergic Rhinitis, Glaucoma, Impaired Vision, Other (See Below) Other HEENT History: Dental abscess Cardiovascular History: Reports: Heart Murmur Respiratory History: Reports: Asthma, Pneumothorax, Other (See Below) Other Respiratory History: collapsed lung hx Gastrointestinal History: Reports: Cholelithiasis, GERD 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 History: Reports: None 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: Musculoskeletal History: Reports: Back Pain, Chronic Neurological History: Reports: Migraines Psychiatric History: Reports: Anxiety, Bipolar, Panic Attack Endocrine/Metabolic History: Reports: Obesity/BMI 30+ - Infectious Disease History Infectious Disease History: Reports: Chicken Pox - Past Surgical History Head Surgeries/Procedures: Reports: None HEENT Surgical History: Reports: Adenoidectomy, Tonsillectomy Cardiovascular Surgical History: Reports: None Respiratory Surgical History: Reports: None GI Surgical History: Reports: Cholecystectomy, Colonoscopy, EGD Female Surgical History: Reports: Section, Tubal Ligation Endocrine Surgical History: Reports: None Neurological Surgical History: Reports: None Musculoskeletal Surgical History: Reports: None Dermatological Surgical History: Reports: None Social & Family History - Family History Family Medical History: Noncontributory Cardiac: Reports: [place] - Tobacco Use Tobacco Use Status *Q: Current Every Day Tobacco User Years of Tobacco use: 23 Packs/Tins Daily: 0.5 - Caffeine Use Caffeine Use: Reports: Soda Caffeine Use Comment: mountain dew - Recreational Drug Use Recreational Drug Use: No Review of Systems - Review of Systems Review Of Systems: See Below Constitutional: Reports: No Symptoms Musculoskeletal: Reports: Foot Pain ED EXAM, GENERAL - Physical Exam Exam: See Below Free Text/Narrative:: Examination of the feet pedal pulses +2 I do not appreciate any difference I do not appreciate any erythema there is no edema there is no specific point tenderness. Exam Limited By: No Limitations General Appearance: Alert, WD/WN, No Apparent Distress Course - Vital Signs Last Recorded V/S: Last Vital Signs Temp 96.9 F 05/31/20 23:58 Pulse 66 05/31/20 23:58 Resp 18 05/31/20 23:58 BP 161/83 H 05/31/20 23:58 Pulse Ox 97 05/31/20 23:58 Departure - Departure Time of Disposition: 00:21 Disposition: Home, Self-Care 01 Condition: Fair Clinical Impression: Bilateral foot pain - Discharge Information Instructions: Foot Pain Referrals: PCP,None [Primary Care Provider] - Additional Instructions: , Use hydrocodone as needed for pain control, please contact the [facility] in the morning for an appointment time with podiatry Sepsis Event Note (ED) - Evaluation Sepsis Screening Result: No Definite Risk - Focused Exam Vital Signs: Vital Signs Temp Pulse Resp BP Pulse Ox 05/31/20 23:58 96.9 F 66 18 161/83 H 97 - Assessment/Plan Plan: Assessment Acuity = acute Site and laterality = bilateral foot pain Etiology = probably related to work type injury with standing all the time on poor footwear Manifestations = none Location of injury = Home Lab values = none Plan Prescription written for hydrocodone 5/325 1 tab p.o. 3 times daily as needed total #8 consultation for podiatry set up she will contact the clinic in the morning at [facility] for an appointment time. This note was dictated using [employer] voice recognition software please call with any questions on syntax or grammar.
== END 2020-06-01 00:32 | disposition home or self-care (01) ==
LOC: JP.ED 23:42
DX: M79.672 Pain in left foot (principal); M79.671 Pain in right foot; E66.9 Obesity, unspecified; F17.210 Nicotine dependence, cigarettes, uncomplicated; J45.909 Unspecified asthma, uncomplicated; Z88.1 Allergy status to other antibiotic agents; Z88.6 Allergy status to analgesic agent; Z91.040 Latex allergy status; Z88.0 Allergy status to penicillin; Z88.2 Allergy status to sulfonamides; Z88.5 Allergy status to narcotic agent
CPT/HCPCS: 99283

== ENCOUNTER 2020-10-30 09:32 | Emergency (ER) | payer MEDICAID ==
[2020-10-30 09:45] VITALS: BP 136/74; PULSE 68
[2020-10-30] MEDS ORDERED: Sodium Chloride 0.9% 1,000 ML IV STA (10:20)
[2020-10-30] MEDS ORDERED: Sodium Chloride 0.9% 10 ML Syringe FLUSH PRN ×2 (10:20→10:35)
--- NOTE | 2020-10-30 10:23 | EDM.PDOC ---
ED HPI GENERAL MEDICAL PROBLEM - General Chief Complaint: Abdominal Pain Stated Complaint: STOMACH ISSUES Time Seen by Provider: 10/30/20 10:16 Source of Information: Reports: Patient, Family, RN Notes Reviewed History Limitations: Reports: No Limitations - History of Present Illness INITIAL COMMENTS - FREE TEXT/NARRATIVE: 35-year-old female presents emergency department day complaint of abdominal pain, she states the pain has been going on for the last 2 years it has gotten worse over the last several months. She states the reason she presented to the emergency department is that she cannot take the pain anymore. She has not followed up with her primary care provider because she does not have 1 denies any nausea vomiting no shortness of breath no chest pain no fevers she is unsure of the type of bowel movement she has. - Related Data Allergies Allergy/AdvReac Type Severity Reaction Status Date / Time ibuprofen Allergy Severe Hives Verified 10/30/20 09:48 Penicillins Allergy Severe Hives Verified 10/30/20 09:48 Sulfa (Sulfonamide Allergy Severe Hives Verified 10/30/20 09:48 Antibiotics) doxycycline Allergy Intermediate Itching Verified 10/30/20 09:48 latex Allergy Intermediate Hives Verified 10/30/20 09:48 codeine phosphate AdvReac Intermediate Nausea and Verified 10/30/20 09:48 [From Tylenol-Codeine #3] Vomiting erythromycin base AdvReac Mild Dizziness Verified 10/30/20 09:48 Home Meds: Home Meds Albuterol Sulfate [Albuterol Sulfate Hfa] 1 puff PO ASDIRECTED 09/14/19 [History] Past Medical History HEENT History: Reports: Allergic Rhinitis, Glaucoma, Impaired Vision, Other (See Below) Other HEENT History: Dental abscess Cardiovascular History: Reports: Heart Murmur Respiratory History: Reports: Asthma, Pneumothorax, Other (See Below) Other Respiratory History: collapsed lung hx Gastrointestinal History: Reports: Cholelithiasis, GERD [employer] History: Reports: Musculoskeletal History: Reports: Back Pain, Chronic Neurological History: Reports: Migraines Psychiatric History: Reports: Anxiety, Bipolar, Panic Attack Endocrine/Metabolic History: Reports: Obesity/BMI 30+ - Infectious Disease History Infectious Disease History: Reports: Chicken Pox - Past Surgical History Head Surgeries/Procedures: Reports: None HEENT Surgical History: Reports: Adenoidectomy, Tonsillectomy Cardiovascular Surgical History: Reports: None Respiratory Surgical History: Reports: None GI Surgical History: Reports: Cholecystectomy, Colonoscopy, EGD Female Surgical History: Reports: Section, Tubal Ligation Endocrine Surgical History: Reports: None Neurological Surgical History: Reports: None Musculoskeletal Surgical History: Reports: None Dermatological Surgical History: Reports: None Social & Family History - Family History Family Medical History: No Pertinent Family History Cardiac: Reports: [place] - Tobacco Use Tobacco Use Status *Q: Current Every Day Tobacco User Years of Tobacco use: 10 Packs/Tins Daily: 0.5 - Caffeine Use Caffeine Use: Reports: Soda Caffeine Use Comment: Vusay - Recreational Drug Use Recreational Drug Use: No ED ROS GENERAL - Review of Systems Review Of Systems: See Below Constitutional: Denies: Fever, Chills, Weight Loss, Weight Gain HEENT: Reports: No Symptoms Respiratory: Reports: No Symptoms Cardiovascular: Reports: No Symptoms GI/Abdominal: Reports: Abdominal Pain, Flatus. Denies: Constipation, Diarrhea, Nausea, Vomiting : Reports: No Symptoms ED EXAM, GI/ABD - Physical Exam Exam: See Below Exam Limited By: No Limitations General Appearance: Alert, WD/WN, No Apparent Distress Respiratory/Chest: No Respiratory Distress, Lungs Clear, Normal Breath Sounds, No Accessory Muscle Use, Chest Non-Tender Cardiovascular: Regular Rate, Rhythm, No Murmur GI/Abdominal Exam: Normal Bowel Sounds, Soft, Non-Tender Course - Vital Signs Last Recorded V/S: Last Vital Signs Temp 97.9 F 10/30/20 09:43 Pulse 68 10/30/20 09:43 Resp 16 10/30/20 09:43 BP 136/74 10/30/20 09:57 Pulse Ox 99 10/30/20 09:43 - Orders/Labs/Meds Orders: Active Orders 24 hr Category Date Time Status Peripheral IV Care [RC] . DIRECTED Care 10/30/20 10:21 Active Iopamidol [Isovue-300 (61%)] Med 10/30/20 10:45 Active 141 ml IV . DIRECTED Sodium Chloride 0.9% [Saline Flush] Med 10/30/20 10:20 Active 10 ml FLUSH ASDIRECTED PRN Sodium Chloride 0.9% [Saline Flush] Med 10/30/20 10:35 Active 10 ml FLUSH ONETIME PRN Peripheral IV Insertion Adult [OM.PC] Urgent Oth 10/30/20 10:20 Ordered Medication Orders Iopamidol (Iopamidol 612 Mg/Ml 150 Ml Bottle) 141 ml IV . DIRECTED PAOLO Last Admin: 10/30/20 10:50 Dose: 141 ml Documented by: LUL Sodium Chloride (Sodium Chloride 0.9% 10 Ml Syringe) 10 ml FLUSH ASDIRECTED PRN PRN Reason: Keep Vein Open Last Admin: 10/30/20 10:36 Dose: 10 ml Documented by: PRADEEP Sodium Chloride (Sodium Chloride 0.9% 10 Ml Syringe) 10 ml FLUSH ONETIME PRN PRN Reason: PER RADIOLOGY PROTOCOL Last Admin: 10/30/20 10:50 Dose: 10 ml Documented by: LUL Labs: Laboratory Tests 10/30/20 10/30/20 10/30/20 Range/Units 10:30 10:30 10:30 WBC 8.3 (4.5-11.0) K/uL RBC 4.73 (3.30-5.50) M/uL Hgb 14.6 (12.0-15.0) g/dL Hct 43.8 (36.0-48.0) % MCV 93 (80-98) fL MCH 31 (27-31) pg MCHC 33 (32-36) % Plt Count 289 (150-400) K/uL Neut % (Auto) 55 (36-66) % Lymph % (Auto) 31 (24-44) % [place] % (Auto) 6 (2-6) % Eos % (Auto) 7 H (2-4) % Baso % (Auto) 1 (0-1) % Sodium 142 (140-148) mmol/L Potassium 4.0 (3.6-5.2) mmol/L Chloride 106 (100-108) mmol/L Carbon Dioxide 25 (21-32) mmol/L Anion Gap 11.1 (5.0-14.0) mmol/L BUN 9 (7-18) mg/dL Creatinine 0.8 (0.6-1.0) mg/dL Est Cr Clr Drug Dosing 95.45 mL/min Estimated GFR (MDRD) > 60 (>60) Glucose 104 (74-106) mg/dL Lactic Acid 1.0 (0.4-2.0) mmol/L Calcium 8.8 (8.5-10.1) mg/dL Total Bilirubin 0.3 (0.2-1.0) mg/dL AST 13 L (15-37) U/L ALT 20 (12-78) U/L Alkaline Phosphatase 73 (46-116) U/L Total Protein 7.2 (6.4-8.2) g/dL Albumin 3.6 (3.4-5.0) g/dL Globulin 3.6 H (2.3-3.5) g/dL Albumin/Globulin Ratio 1.0 L (1.2-2.2) Lipase 143 (73-393) U/L HCG, Qual 10/30/ Range/Units 10:30 WBC (4.5-11.0) K/uL RBC (3.30-5.50) M/uL Hgb (12.0-15.0) g/dL Hct (36.0-48.0) % MCV (80-98) fL MCH (27-31) pg MCHC (32-36) % Plt Count (150-400) K/uL Neut % (Auto) (36-66) % Lymph % (Auto) (24-44) % [place] % (Auto) (2-6) % Eos % (Auto) (2-4) % Baso % (Auto) (0-1) % Sodium (140-148) mmol/L Potassium (3.6-5.2) mmol/L Chloride (100-108) mmol/L Carbon Dioxide (21-32) mmol/L Anion Gap (5.0-14.0) mmol/L BUN (7-18) mg/dL Creatinine (0.6-1.0) mg/dL Est Cr Clr Drug Dosing mL/min Estimated GFR (MDRD) (>60) Glucose (74-106) mg/dL Lactic Acid (0.4-2.0) mmol/L Calcium (8.5-10.1) mg/dL Total Bilirubin (0.2-1.0) mg/dL AST (15-37) U/L ALT (12-78) U/L Alkaline Phosphatase (46-116) U/L Total Protein (6.4-8.2) g/dL Albumin (3.4-5.0) g/dL Globulin (2.3-3.5) g/dL Albumin/Globulin Ratio (1.2-2.2) Lipase (73-393) U/L HCG, Qual Negative Meds: Medications Generic Name Dose Route Start Last Admin Trade Name Freq PRN Reason Stop Dose Admin Iopamidol 141 ml 10/30/20 10:45 10/30/20 10:50 Iopamidol 612 Mg/Ml 150 Ml Bottle IV 141 ml . DIRECTED PAOLO Administration Sodium Chloride 10 ml 10/30/20 10:20 10/30/20 10:36 Sodium Chloride 0.9% 10 Ml Syringe FLUSH 10 ml ASDIRECTED PRN Administration Keep Vein Open Sodium Chloride 10 ml 10/30/20 10:35 10/30/20 10:50 Sodium Chloride 0.9% 10 Ml Syringe FLUSH 10 ml ONETIME PRN Administration PER RADIOLOGY PROTOCOL Discontinued Medications Generic Name Dose Route Start Last Admin Trade Name Sudeep PRN Reason Stop Dose Admin Sodium Chloride 1,000 mls @ 500 mls/hr 10/30/20 10:20 10/30/20 10:58 Normal Saline IV 10/30/20 12:19 500 mls/hr .BOLUS STA Administration Sodium Chloride 83 mls @ 3 mls/sec 10/30/20 10:35 10/30/20 10:50 Normal Saline IV 10/30/20 10:36 3 mls/sec ONETIME ONE Administration Departure - Departure Time of Disposition: 14:49 Disposition: Home, Self-Care 01 Condition: Fair Clinical Impression: Large uterus - Discharge Information Referrals: PCP,None [Primary Care Provider] - Forms: ED Department Discharge Additional Instructions: Please call dental clinic for an appointment time with [employer] Sepsis Event Note (ED) - Evaluation Sepsis Screening Result: No Definite Risk - Focused Exam Vital Signs: Vital Signs Temp Pulse Resp BP Pulse Ox 10/30/20 09:57 136/74 10/30/20 09:43 97.9 F 68 16 136/74 99 - My Orders Last 24 Hours: My Active Orders 10/30/20 10:20 Sodium Chloride 0.9% [Saline Flush] 10 ml FLUSH ASDIRECTED PRN Peripheral IV Insertion Adult [OM.PC] Urgent 10/30/20 10:21 Peripheral IV Care [RC] . DIRECTED 10/30/20 10:35 Sodium Chloride 0.9% [Saline Flush] 10 ml FLUSH ONETIME PRN 10/30/20 10:45 Iopamidol [Isovue-300 (61%)] 141 ml IV . DIRECTED - Assessment/Plan Last 24 Hours: My Active Orders 10/30/20 10:20 Sodium Chloride 0.9% [Saline Flush] 10 ml FLUSH ASDIRECTED PRN Peripheral IV Insertion Adult [OM.PC] Urgent 10/30/20 10:21 Peripheral IV Care [RC] . DIRECTED 10/30/20 10:35 Sodium Chloride 0.9% [Saline Flush] 10 ml FLUSH ONETIME PRN 10/30/20 10:45 Iopamidol [Isovue-300 (61%)] 141 ml IV . DIRECTED Plan: Assessment Acuity = acute Site and laterality = enlarged uterus Etiology = unknown Manifestations = abdominal pain pelvic pain Location of injury = Home Lab values = CBC CMP hCG all negative CT scan shows enlarged uterus ultrasound shows borderline enlargement Plan I did review lab work image studies with her and provided her copies of her test results. Setting a consultation for [employer] with the [facility] This note was dictated using Pictorious voice recognition software please call with any questions on syntax or grammar.
[2020-10-30] MEDS ORDERED: Iopamidol 612 MG/ML 150 ML Bottle IV SCH (10:45)
--- NOTE | 2020-10-30 11:32 | CT ---
Abdomen Pelvis w Cont CLINICAL HISTORY: Pelvic pain COMPARISON: 03/09/2020. TECHNIQUE: Transverse scans were obtained from the base of the lungs to the pubic symphysis following oral contrast and IV infusion of contrast.Auto dosage reduction and iterative reconstructiontechniques employed. FINDINGS: The lung bases are clear. The liver shows no mass or inflammatory change. The gallbladder has been removed. The spleen has a normal size and shape. The pancreas shows no mass or inflammatory change. The adrenal glands appear normal bilaterally . The kidneys show no mass, stone or hydronephrosis. The ureters have normal course and caliber. The bladder has a normal contour. Uterus is mildly enlarged and somewhat heterogeneous. It has increased in size since prior study. The endometrium is prominent measuring approximately 12 mm in AP dimension. The ovaries of increase in size bilaterally since prior study. These likely represent ovarian cysts.. The aorta has a normal contour. There is no suspicious retroperitoneal adenopathy. There are scattered fluid-filled loops of small bowel in a nonspecific pattern. Appendix is normal contour. There are a few tiny diverticula without evidence of diverticulitis IMPRESSION: Interval uterine enlargement with compared to 2019 Endometrial thickening increased since prior study Pelvic ultrasound should be considered. Previous cholecystectomy
--- NOTE | 2020-10-30 14:22 | US ---
Pelvis Non OB Ltd, Transvaginal Non OB CLINICAL HISTORY: Pelvic pain, enlarged uterus FINDINGS: Real-time transabdominal and transvaginal images were obtained through the pelvis. Uterus measures 9.3 x 4.1 x 5.1 cm. Endometrial stripe measures 6 mm. There is also some fluid in the endometrial cavity. This measures over 4 cm. This would correlate to the combined measurement described on pelvic CT. No adnexal mass or free fluid collection is identified. IMPRESSION: Normal dimension endometrial stripe with fluid in the endometrial cavity Uterus is borderline enlarged No pelvic mass or free fluid collection
== END 2020-10-30 15:08 | disposition home or self-care (01) ==
LOC: JP.ED 09:32
DX: N85.8 Other specified noninflammatory disorders of uterus (principal); J45.909 Unspecified asthma, uncomplicated; E66.9 Obesity, unspecified; Z68.32 Body mass index [BMI] 32.0-32.9, adult; Z72.0 Tobacco use; Z88.6 Allergy status to analgesic agent; Z88.0 Allergy status to penicillin; Z88.2 Allergy status to sulfonamides; Z88.1 Allergy status to other antibiotic agents; Z91.040 Latex allergy status; Z88.5 Allergy status to narcotic agent
CPT/HCPCS: 36415; 74177; 76830; 76857; 80053; 83605; 83690; 84703; 85025; 99283; 99284; J7030; Q9967

== ENCOUNTER 2020-11-17 17:53 | Emergency (ER) | payer MEDICAID ==
[2020-11-17 18:05] VITALS: BP 132/81; PULSE 62
--- NOTE | 2020-11-17 18:17 | EDM.PDOC ---
ED HPI GENERAL MEDICAL PROBLEM - General Chief Complaint: Chest Pain Stated Complaint: CHEST PAIN, SHARP PAIN IN LT ARM Time Seen by Provider: 11/17/20 18:15 Source of Information: Reports: Patient, Old Records, RN History Limitations: Reports: No Limitations - History of Present Illness INITIAL COMMENTS - FREE TEXT/NARRATIVE: 35 yo NA female smoker presents with central sternal tenderness since yesterday. Has not been seen in the clinic for this. Sx's are worse with deep breathing or lifting. She tried acetaminophen and lying down for this without benefit. No fever or cough. Onset: Gradual Onset Date: 11/16/20 Duration: Day(s): (1+), Waxing/Waning Location: Reports: Chest Quality: Reports: Sharp Severity: Moderate Improves with: Reports: Rest Worsens with: Reports: Breathing, Movement Context: Reports: Other (See HPI) Associated Symptoms: Reports: Chest Pain. 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 - Related Data Allergies Allergy/AdvReac Type Severity Reaction Status Date / Time ibuprofen Allergy Severe Hives Verified 11/17/20 18:09 Penicillins Allergy Severe Hives Verified 11/17/20 18:09 Sulfa (Sulfonamide Allergy Severe Hives Verified 11/17/20 18:09 Antibiotics) doxycycline Allergy Intermediate Itching Verified 11/17/20 18:09 latex Allergy Intermediate Hives Verified 11/17/20 18:09 codeine phosphate AdvReac Intermediate Nausea and Verified 11/17/20 18:09 [From Tylenol-Codeine #3] Vomiting erythromycin base AdvReac Mild Dizziness Verified 11/17/20 18:09 Home Meds: Home Meds Albuterol Sulfate [Albuterol Sulfate Hfa] 1 puff PO ASDIRECTED 09/14/19 [History] predniSONE [Prednisone] 10 mg PO BID #10 tab.ds.pk 11/17/20 [Rx] Past Medical History HEENT History: Reports: Allergic Rhinitis, Glaucoma, Impaired Vision, Other (See Below) Other HEENT History: Dental abscess Cardiovascular History: Reports: Heart Murmur Respiratory History: Reports: Asthma, Pneumothorax, Other (See Below) Other Respiratory History: collapsed lung hx Gastrointestinal History: Reports: Cholelithiasis, GERD 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 History: Reports: None 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: Musculoskeletal History: Reports: Back Pain, Chronic Neurological History: Reports: Migraines Psychiatric History: Reports: Anxiety, Bipolar, Panic Attack Endocrine/Metabolic History: Reports: Obesity/BMI 30+ - Infectious Disease History Infectious Disease History: Reports: Chicken Pox - Past Surgical History Head Surgeries/Procedures: Reports: None HEENT Surgical History: Reports: Adenoidectomy, Tonsillectomy Cardiovascular Surgical History: Reports: None Respiratory Surgical History: Reports: None GI Surgical History: Reports: Cholecystectomy, Colonoscopy, EGD Female Surgical History: Reports: Section, Tubal Ligation Endocrine Surgical History: Reports: None Neurological Surgical History: Reports: None Musculoskeletal Surgical History: Reports: None Dermatological Surgical History: Reports: None Social & Family History - Family History Family Medical History: No Pertinent Family History Cardiac: Reports: [place] - Tobacco Use Tobacco Use Status *Q: Current Every Day Tobacco User Years of Tobacco use: 15 Packs/Tins Daily: 0.5 - Caffeine Use Caffeine Use: Reports: Soda Caffeine Use Comment: mountain dew - Recreational Drug Use Recreational Drug Use: No ED ROS GENERAL - Review of Systems Review Of Systems: See Below Constitutional: Reports: No Symptoms HEENT: Reports: No Symptoms Respiratory: Reports: Pleuritic Chest Pain. Denies: Shortness of Breath, Wheezing, Cough, Sputum, Hemoptysis Cardiovascular: Reports: Chest Pain (wall pain). Denies: Dyspnea on Exertion, Edema, Palpitations, Syncope GI/Abdominal: Reports: No Symptoms. Denies: Nausea : Reports: No Symptoms Musculoskeletal: Reports: No Symptoms Skin: Reports: No Symptoms Neurological: Reports: No Symptoms ED EXAM, GENERAL - Physical Exam Exam: See Below Exam Limited By: No Limitations General Appearance: Alert, WD/WN, No Apparent Distress Eye Exam: Bilateral Eye: Normal Inspection Ears: Normal External Exam, Normal Canal, Hearing Grossly Normal Ear Exam: Bilateral Ear: Auricle Normal, Canal Normal Nose: Normal Inspection, No Blood Throat/Mouth: Normal Inspection, Normal Lips, Normal Voice, No Airway Compromise Head: Atraumatic, Normocephalic Neck: Normal Inspection Respiratory/Chest: No Respiratory Distress, Lungs Clear, Normal Breath Sounds, No Accessory Muscle Use. No: Chest Non-Tender (tender over sternum) Cardiovascular: Regular Rate, Rhythm, No Edema GI/Abdominal: Normal Bowel Sounds, Soft, Non-Tender, No Distention Extremities: Normal Inspection, Normal Range of Motion, Non-Tender, No Pedal Edema Neurological: Alert, Oriented, CN II-XII Intact, Normal Cognition, No Motor/Sensory Deficits Psychiatric: Normal Affect, Normal Mood Skin Exam: Warm, Dry, Intact, Normal Color, No Rash #1 Interpretation EKG Date: 11/17/20 Time: 18:15 Rhythm: NSR Rate (Beats/Min): 57 [place]: Normal P-Wave: Present QRS: Normal ST-T: Normal QT: Normal (borderline prolonged DE interval) Comparison: NA - No Prior EKG Course - Vital Signs Last Recorded V/S: Last Vital Signs Temp 36.7 C 11/17/20 18:09 Pulse 62 11/17/20 18:09 Resp 16 11/17/20 18:09 BP 132/81 11/17/20 18:09 Pulse Ox 97 11/17/20 18:09 - Orders/Labs/Meds Orders: Active Orders 24 hr Category Date Time Status Cardiac Monitoring [RC] .As Directed Care 11/17/20 18:08 Ordered EKG Documentation Completion [RC] ASDIRECTED Care 11/17/20 18:08 Ordered EKG 12 Lead [EK] Routine Ther 11/17/20 18:08 Ordered Meds: Medications Discontinued Medications Generic Name Dose Route Start Last Admin Trade Name Freq PRN Reason Stop Dose Admin Prednisone 10 mg 11/17/20 21:00 Prednisone 10 Mg Tab PO BID PAOLO Departure - Departure Time of Disposition: 18:29 Disposition: Home, Self-Care 01 Condition: Good Clinical Impression: Costochondritis Prescriptions: predniSONE [Prednisone] 10 mg PO BID #10 tab.ds.pk Instructions: Costochondritis, [id number] Referrals: PCP,None [Primary Care Provider] - Forms: ED Department Discharge Additional Instructions: Use prednisone as directed. No smoking. Take acetaminophen 1000 mg every 6 hrs as needed for pain relief. Recheck with your provider the end of the week. Sepsis Event Note (ED) - Evaluation Sepsis Screening Result: No Definite Risk - Focused Exam Vital Signs: Vital Signs Temp Pulse Resp BP Pulse Ox 11/17/20 18:09 36.7 C 62 16 132/81 97 11/17/20 18:03 36.7 C 62 16 132/81 97 - My Orders Last 24 Hours: My Active Orders 11/17/20 18:08 Cardiac Monitoring [RC] .As Directed EKG Documentation Completion [RC] ASDIRECTED EKG 12 Lead [EK] Routine - Assessment/Plan Last 24 Hours: My Active Orders 11/17/20 18:08 Cardiac Monitoring [RC] .As Directed EKG Documentation Completion [RC] ASDIRECTED EKG 12 Lead [EK] Routine
[2020-11-17] MEDS ORDERED: predniSONE 10 MG Tab PO SCH (21:00)
== END 2020-11-17 18:39 | disposition home or self-care (01) ==
LOC: JP.ED 17:53
DX: M94.0 Chondrocostal junction syndrome [Tietze] (principal); J45.909 Unspecified asthma, uncomplicated; E66.9 Obesity, unspecified; Z91.040 Latex allergy status; Z88.0 Allergy status to penicillin; Z88.1 Allergy status to other antibiotic agents; Z88.2 Allergy status to sulfonamides; Z88.5 Allergy status to narcotic agent; Z72.0 Tobacco use; Z68.32 Body mass index [BMI] 32.0-32.9, adult
CPT/HCPCS: 93005; 99284-25

== ENCOUNTER 2021-06-05 20:34 | Emergency (ER) | payer MEDICAID ==
[2021-06-05 20:47] VITALS: BP 150/87; PULSE 69
[2021-06-05] MEDS ORDERED: Acetaminophen/HYDROcodone 325-5 MG Tab PO ONE (21:39)
--- NOTE | 2021-06-05 21:45 | EDM.PDOC ---
ED HPI GENERAL MEDICAL PROBLEM - General Chief Complaint: Upper Extremity Injury/Pain Stated Complaint: RT HAND PAIN , SWELLING Time Seen by Provider: 06/05/21 20:52 Source of Information: Reports: Patient History Limitations: Reports: No Limitations - History of Present Illness INITIAL COMMENTS - FREE TEXT/NARRATIVE: The emergency room today secondary to right hand and wrist swelling and discomfort. Patient denies any known injury or accident she states that it has been puffy swollen tender in nature for the last couple of days. She states that she has been helping a friend move rocks in the garden but she does not remember any accident or injury. She states that she came to the emergency room tonight because her hand to her feels more swollen and hurts to move. She rates the pain is a 10 out of 10 sharp shooting [id number] sensation and a constant throb she has used Aleve and acetaminophen with no help or relief and she is noted to be right-handed PMH--asthma, LBP Meds--albuterol inhaler, cyclobenzaprine Allergies--multiple reviewed in EMR/patient did not know all Tob--1ppd EtOH/Drug--denies Denies having had COVID infection history nor has she had her COVID immunization right hand/wrist Pain Score (Numeric/FACES): 10 - Related Data Allergies Allergy/AdvReac Type Severity Reaction Status Date / Time ibuprofen Allergy Severe Hives Verified 06/05/21 21:27 Penicillins Allergy Severe Hives Verified 06/05/21 21:27 Sulfa (Sulfonamide Allergy Severe Hives Verified 06/05/21 21:27 Antibiotics) doxycycline Allergy Intermediate Itching Verified 06/05/21 21:27 latex Allergy Intermediate Hives Verified 06/05/21 21:27 codeine phosphate AdvReac Intermediate Nausea and Verified 06/05/21 21:27 [From Tylenol-Codeine #3] Vomiting erythromycin base AdvReac Mild Dizziness Verified 06/05/21 21:27 Home Meds: Home Meds Albuterol Sulfate [Albuterol Sulfate Hfa] 1 puff PO ASDIRECTED 09/14/19 [History] Cyclobenzaprine [Flexeril] 10 mg PO ASDIRECTED PRN 06/05/21 [History] SUMAtriptan [Imitrex] 25 mg PO ASDIRECTED PRN 06/05/21 [History] Past Medical History HEENT History: Reports: Allergic Rhinitis, Glaucoma, Impaired Vision, Other (See Below) Other HEENT History: Dental abscess Cardiovascular History: Reports: Heart Murmur Respiratory History: Reports: Asthma, Pneumothorax, Other (See Below) Other Respiratory History: collapsed lung hx Gastrointestinal History: Reports: Cholelithiasis, GERD 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 History: Reports: None 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: Musculoskeletal History: Reports: Back Pain, Chronic Neurological History: Reports: Migraines Psychiatric History: Reports: Anxiety, Bipolar, Panic Attack Endocrine/Metabolic History: Reports: Obesity/BMI 30+ - Infectious Disease History Infectious Disease History: Reports: Chicken Pox - Past Surgical History Head Surgeries/Procedures: Reports: None HEENT Surgical History: Reports: Adenoidectomy, Tonsillectomy Cardiovascular Surgical History: Reports: None Respiratory Surgical History: Reports: None GI Surgical History: Reports: Cholecystectomy, Colonoscopy, EGD Female Surgical History: Reports: Section, Tubal Ligation Endocrine Surgical History: Reports: None Neurological Surgical History: Reports: None Musculoskeletal Surgical History: Reports: None Dermatological Surgical History: Reports: None Social & Family History - Family History Family Medical History: No Pertinent Family History Cardiac: Reports: [place] - Tobacco Use Tobacco Use Status *Q: Current Every Day Tobacco User Years of Tobacco use: 15 Packs/Tins Daily: 1 - Caffeine Use Caffeine Use: Reports: Soda Caffeine Use Comment: korey strickland Review of Systems - Review of Systems Review Of Systems: Comprehensive ROS is negative, except as noted in HPI. Musculoskeletal: Reports: Hand Pain, Joint Swelling, Muscle Pain, Muscle Stiffness ED EXAM, GENERAL - Physical Exam Exam: See Below Exam Limited By: No Limitations General Appearance: Alert, WD/WN, Moderate Distress (secondary to right hand/wrist pain-discomfort) Eye Exam: Bilateral Eye: EOMI, PERRL Ears: Normal External Exam Nose: Normal Inspection Throat/Mouth: Normal Inspection, Normal Voice, No Airway Compromise Head: Atraumatic, Normocephalic Neck: Supple Respiratory/Chest: No Respiratory Distress, Lungs Clear, Normal Breath Sounds Cardiovascular: Regular Rate, Rhythm, No Edema, No Murmur Peripheral Pulses: 2+: Radial (L), Radial (R) (Female) Exam: Deferred Rectal (Female) Exam: Deferred Back Exam: Normal Inspection, Full Range of Motion Extremities: Normal Range of Motion, No Pedal Edema, Normal Capillary Refill, Other (tender and mild fullness to right hand/wrist area; decrease AROM due pain, PROM intact but reported to be painful) Neurological: Alert, Oriented, Normal Cognition, Normal Gait, No Motor/Sensory Deficits Psychiatric: Normal Affect, Normal Mood Skin Exam: Warm, Dry, Intact, Normal Color Course - Vital Signs Last Recorded V/S: Last Vital Signs Temp 98.2 F 06/05/21 21:30 Pulse 69 06/05/21 21:30 Resp 16 06/05/21 21:30 BP 150/87 H 06/05/21 21:30 Pulse Ox 97 06/05/21 21:30 - Orders/Labs/Meds Orders: Active Orders 24 hr Category Date Time Status Wrist Comp Min 3V Rt [CR] Stat Exams 06/05/21 21:00 Taken - Radiology Interpretation Free Text/Narrative:: XR R-wrist (preliminary)--no acute findings of fracture/dislocation; final radiology reading pending Departure - Departure Time of Disposition: 21:47 Disposition: Home, Self-Care 01 Condition: Good Clinical Impression: Acute pain of right wrist, Elevated blood pressure reading - Discharge Information *PRESCRIPTION DRUG MONITORING PROGRAM REVIEWED*: Not Applicable *COPY OF PRESCRIPTION DRUG MONITORING REPORT IN PATIENT MANDO: Not Applicable Instructions: How to Take Your Blood Pressure, [id number], Wrist Pain, Adult, [id number] Referrals: PCP,None [Primary Care Provider] - Additional Instructions: Continue to use ice/cold therapy or heat as you find helpful for pain, use over the counter acetaminophen (Tylenol) or naproxen (Alleve) as per label. You may also consider any athletic rubs as there are some with lidocaine or capsacian that may be helpful. You have been provided a velcro wrist splint to wear for comfort. It is recommended that you follow up with your primary care provider if pain continues next week for this as well as noted elevated blood pressure Sepsis Event Note (ED) - Evaluation Sepsis Screening Result: No Definite Risk - Focused Exam Vital Signs: Vital Signs Temp Pulse Resp BP Pulse Ox 06/05/21 21:30 98.2 F 69 16 150/87 H 97 06/05/21 20:45 98.2 F 69 16 150/87 H 97 - My Orders Last 24 Hours: My Active Orders 06/05/21 21:00 Wrist Comp Min 3V Rt [CR] Stat - Assessment/Plan Last 24 Hours: My Active Orders 06/05/21 21:00 Wrist Comp Min 3V Rt [CR] Stat
--- NOTE | 2021-06-06 08:49 | CR ---
Wrist Comp Min 3V Rt CLINICAL HISTORY: Pain, no trauma FINDINGS: There is no acute fracture or dislocation within the right wrist. Articular surfaces are smooth Impression: Negative If clinical symptomatology persists or worsens a repeat exam is recommended.
== END 2021-06-05 22:10 | disposition home or self-care (01) ==
LOC: JP.ED 20:34
DX: M25.531 Pain in right wrist (principal); R03.0 Elevated blood-pressure reading, without diagnosis of hypertension; Z88.2 Allergy status to sulfonamides; Z88.0 Allergy status to penicillin; Z91.040 Latex allergy status; Z88.1 Allergy status to other antibiotic agents; Z88.5 Allergy status to narcotic agent; E66.9 Obesity, unspecified; Z72.0 Tobacco use; Z68.33 Body mass index [BMI] 33.0-33.9, adult
CPT/HCPCS: 73110; 99283; A9270

== ENCOUNTER 2021-08-14 15:05 | Emergency (ER) | payer MEDICAID ==
[2021-08-14] MEDS ORDERED: Alum Hydrox/Mag Hydrox/Simeth 15 ML, Lidocaine 2% 15 ML PO ONE ×2 (16:04)
[2021-08-14] MEDS ORDERED: Sodium Chloride 0.9% 1,000 ML IV ONE (16:40)
[2021-08-14] MEDS ORDERED: Sodium Chloride 0.9% 10 ML SDV FLUSH ONE (16:53)
[2021-08-14] MEDS ORDERED: Iopamidol 612 MG/ML 150 ML Bottle IV PRN (16:53)
[2021-08-14] MEDS ORDERED: Sodium Chloride 0.9% 100 ML IV SCH (17:00)
[2021-08-14 17:22] VITALS: BP 123/60; PULSE 61
[2021-08-14] MEDS ORDERED: Pantoprazole 40 MG Vial IVPUSH ONE (17:46)
== END 2021-08-14 18:23 | disposition home or self-care (01) ==
LOC: JP.ED 15:05
DX: K29.50 Unspecified chronic gastritis without bleeding (principal); J45.909 Unspecified asthma, uncomplicated; E66.9 Obesity, unspecified; Z72.0 Tobacco use; Z88.6 Allergy status to analgesic agent; Z88.0 Allergy status to penicillin; Z88.2 Allergy status to sulfonamides; Z88.1 Allergy status to other antibiotic agents; Z91.040 Latex allergy status; Z88.5 Allergy status to narcotic agent; Z68.32 Body mass index [BMI] 32.0-32.9, adult
CPT/HCPCS: 36415; 74177; 80053; 83690; 85025; 96374; 99284; 99285; A9270; C9113; J7030; Q9967

== ENCOUNTER 2021-10-29 17:12 | Emergency (ER) | payer MEDICAID ==
[2021-10-29 17:27] VITALS: BP 127/76; PULSE 63
== END 2021-10-29 18:44 | disposition home or self-care (01) ==
LOC: JP.ED 17:12
DX: N30.00 Acute cystitis without hematuria (principal); M54.41 Lumbago with sciatica, right side; M54.42 Lumbago with sciatica, left side; K21.9 Gastro-esophageal reflux disease without esophagitis; E66.9 Obesity, unspecified; Z68.32 Body mass index [BMI] 32.0-32.9, adult; Z79.899 Other long term (current) drug therapy; Z88.0 Allergy status to penicillin; Z88.2 Allergy status to sulfonamides; Z88.8 Allergy status to other drugs, medicaments and biological substances; Z88.1 Allergy status to other antibiotic agents; Z91.040 Latex allergy status; Z72.0 Tobacco use
CPT/HCPCS: 81001; 87086; 87088; 87186; 99283; 99284

== ENCOUNTER 2022-09-28 12:24 | Emergency (ER) | payer MEDICAID ==
[2022-09-28 12:57] VITALS: BP 138/73; PULSE 77
[2022-09-28] MEDS ORDERED: Benzonatate 100 MG Cap PO ONE (12:57)
[2022-09-28] MEDS ORDERED: Albuterol/Ipratropium 3.0-0.5 MG/3 ML Neb Soln NEB ONE (12:57)
== END 2022-09-28 13:33 | disposition left against medical advice (07) ==
LOC: JP.ED 12:24
DX: R06.02 Shortness of breath (principal); F17.210 Nicotine dependence, cigarettes, uncomplicated; J45.909 Unspecified asthma, uncomplicated; E66.9 Obesity, unspecified; Z68.31 Body mass index [BMI] 31.0-31.9, adult; Z88.0 Allergy status to penicillin; Z88.2 Allergy status to sulfonamides; Z91.040 Latex allergy status; Z88.6 Allergy status to analgesic agent; Z88.5 Allergy status to narcotic agent; Z88.1 Allergy status to other antibiotic agents
CPT/HCPCS: 36415; 71046; 80048; 83605; 85025; 94640; 99285; A9270; J7620

== ENCOUNTER 2023-05-05 14:45 | Emergency (ER) | payer MEDICAID ==
[2023-05-05 15:19] VITALS: BP 157/83; PULSE 65
[2023-05-05] MEDS ORDERED: Ketorolac 30 MG/ML SDV IM ONE (15:59)
== END 2023-05-05 17:45 | disposition home or self-care (01) ==
LOC: JP.ED 14:45
DX: S80.02XA Contusion of left knee, initial encounter (principal); F17.210 Nicotine dependence, cigarettes, uncomplicated; E66.9 Obesity, unspecified; Z79.899 Other long term (current) drug therapy; Z86.16 Personal history of COVID-19; Z88.0 Allergy status to penicillin; Z88.1 Allergy status to other antibiotic agents; Z88.5 Allergy status to narcotic agent; Z88.8 Allergy status to other drugs, medicaments and biological substances; Z88.2 Allergy status to sulfonamides; Z91.040 Latex allergy status; Z68.30 Body mass index [BMI] 30.0-30.9, adult; X50.9XXA Other and unspecified overexertion or strenuous movements or postures, initial encounter
CPT/HCPCS: 73562-26-LT; 73562-LT; 99283